=== PATIENT | female | born 1955 | race Caucasian/White ===

== ENCOUNTER 2019-06-18 01:45 | Day surgery (SDC) | payer MEDICARE, OTHER, SELFPAY ==
[2019-06-13 15:06] VITALS: BMI 31.4
[2019-06-18 10:14] VITALS: BP 197/58; PULSE 56; RESP 16; TEMP 36.5; O2SAT 97
--- NOTE | 2019-06-18 10:27 | P.HP_ITS ---
History of Present Illness History of Present Illness Consent: Risks, benefits, and alternatives have been discussed and questions answered. Patient agrees to proceed with procedure. Chief complaint: Change In Bowel Habits Narrative: Jenn Salazar is a 64 year old W female referred for colonoscopy secondary to change in bowel pattern. Patient states that since April of 2019 she has had 3-4 liquid stools per day no blood. No abdominal pain. No fever chills or sweats. No recent travel. Was at this time her was diagnosed with pancreatic cancer. She thinks it may be stress relief. He did not be in the past last one was in 2011. She has had no history of polyps no family history of colon cancer. She has a sister who she thinks has ulcerative colitis. Another sister with diverticulitis. [facility] Past Medical History Medical History (Updated 06/18/19 @ 10:30 by Twan Sullivan MD) Arthritis HX: benign breast biopsy Hyperlipidemia Hypertension TINO (obstructive sleep apnea) Surgical History Surgical History (Updated 06/18/19 @ 10:30 by Twan Sullivan MD) History of appendectomy History of bilateral tubal ligation History of History of cholecystectomy Social History Social History (Updated 05/14/19 @ 12:44 by Rocco Barriga PA-C) Smoking status: Never smoker Meds Home Medications and Allergies Home Medications Medication Instructions Recorded Confirmed Type atorvastatin 10 mg PO DAILY 06/13/19 06/18/19 History conj estrogens-bazedoxifene 1 tablet PO DAILY 06/13/19 06/18/19 History [Duavee] dicyclomine 10 mg PO TID PRN 06/13/19 06/18/19 History fluoxetine 40 mg PO DAILY 06/13/19 06/18/19 History hydrochlorothiazide 12.5 mg PO DAILY 06/13/19 06/18/19 History lisinopril 10 mg PO DAILY 06/13/19 06/18/19 History metoprolol succinate 50 mg PO DAILY 06/13/19 06/18/19 History montelukast 10 mg PO DAILY 06/13/19 06/18/19 History pregabalin [Lyrica] 200 mg PO BID 06/13/19 06/18/19 History ropinirole [Requip XL] 2 mg PO BID 01/22/20 01/27/20 History Allergies Allergy/AdvReac Type Severity Reaction Status Date / Time celecoxib AdvReac Unknown HEARTBURN, Verified 06/18/19 10:12 GI UPSET naproxen AdvReac Unknown HEARTBURN, Verified 06/18/19 10:12 GI UPSET Vital Signs Vital Signs - 24 hr 06/18/19 10:14 Temperature 36.5 C Pulse Rate 56 L Respiratory Rate 16 Blood Pressure 197/58 H Pulse Oximetry 97 Exam Const: Orientation/consciousness: patient oriented x3 Resp: Auscultation: clear to auscultation bilaterally Cardio: Rate: regular rate Rhythm: regular rhythm Heart sounds: no murmurs GI: GI Palp: Yes Soft to palpation, No Tenderness to palpation present (GI), Yes No hepatosplenomegaly present and No Palpable mass present Auscultation: normal bowel sounds Neuro: General: patient oriented x3 and no focal motor deficits Extrem: General: no pedal edema Assessment and Plan Additional Plan colonoscopy for evaluation change in bowel pattern
--- NOTE | 2019-06-18 10:27 | WPDANESEPPF ---
Anes - Initial Pre Proc Eval Procedure: Operation Date: 06/18/19 11:30 Proposed Procedures p Colonoscopy - Twan Sullivan MD Date/Time: 06/18/19 10:27 Surgeon: Twan Sullivan MD Pre Op Diagnosis: Change In Bowel Habits Patient Data Age: 64 Gender: F Height: 5 ft 7 in Weight: 89.3 kg Last Vital Signs Temp 97.7 F 06/18/19 10:14 Pulse 56 L 06/18/19 10:14 Resp 16 06/18/19 10:14 BP 197/58 H 06/18/19 10:14 Pulse Ox 97 06/18/19 10:14 Allergies Allergy/AdvReac Type Severity Reaction Status Date / Time celecoxib AdvReac Unknown HEARTBURN, Verified 06/18/19 10:12 GI UPSET naproxen AdvReac Unknown HEARTBURN, Verified 06/18/19 10:12 GI UPSET Home Medications Medication Instructions Recorded Confirmed Type atorvastatin 10 mg PO DAILY 06/13/19 06/18/19 History conj estrogens-bazedoxifene 1 tablet PO DAILY 06/13/19 06/18/19 History [Duavee] dicyclomine 10 mg PO TID PRN 06/13/19 06/18/19 History fluoxetine 40 mg PO DAILY 06/13/19 06/18/19 History hydrochlorothiazide 12.5 mg PO DAILY 06/13/19 06/18/19 History lisinopril 10 mg PO DAILY 06/13/19 06/18/19 History metoprolol succinate 50 mg PO DAILY 06/13/19 06/18/19 History montelukast 10 mg PO DAILY 06/13/19 06/18/19 History pregabalin [Lyrica] 200 mg PO BID 06/13/19 06/18/19 History ropinirole [Requip XL] 2 mg PO BID 06/13/19 06/18/19 History Patient hx anesthesia problems: none Family hx anesthesia problems: none PMFSH Past Medical History Medical History (Updated 06/18/19 @ 10:27 by Sarthak Thayer MD) Arthritis Hyperlipidemia Hypertension TINO (obstructive sleep apnea) Social History Social History (Updated 05/14/19 @ 12:44 by Rocco Barriga PA-C) Smoking status: Never smoker Anes - Eval Final PreProcedure Day of Procedure 06/18/19 10:27 Patient weight: normal Heart: regular rate and rhythm Lungs: clear to auscultation Airway: Mallampati scale class II Neurological: alert and oriented Last oral intake: >/= 8 hours ASA classification: III Emergent: no Anesthetic plan: proceed Anesthesia type and monitoring: general GIVS and standard monitoring Informed Consent: The patient's anesthetic plan and its attendant risks and benefits were discussed with the patient/family/POA. Questions were solicited and answers provided to the satisfaction of the patient/family/POA.
[2019-06-18] MEDS: LACTATED RINGERS 1,000 ML 150 ML IV CONT (10:34)
[2019-06-18 12:01] VITALS: BP 114/58; PULSE 48; RESP 21; O2SAT 97
[2019-06-18 12:11] VITALS: BP 146/62; PULSE 49; RESP 20; O2SAT 99
[2019-06-18 12:22] VITALS: BP 159/74; PULSE 50; RESP 20; O2SAT 99
== END 2019-06-18 12:40 | disposition home or self-care (01) ==
PROVIDERS: PCP Internal Medicine; Visit Provider Internal Medicine Gastroenterology
PROC: 0DJD8ZZ Inspection of Lower Intestinal Tract, Via Natural or Artificial Opening Endoscopic (ICD-10-PCS; CPT 45378; principal; 2019-06-18 11:30)
DX: K52.9 Noninfective gastroenteritis and colitis, unspecified (principal); I10 Essential (primary) hypertension; E78.5 Hyperlipidemia, unspecified; G47.33 Obstructive sleep apnea (adult) (pediatric); M19.90 Unspecified osteoarthritis, unspecified site
CPT/HCPCS: 45380; 88305; J2704; J7120

== ENCOUNTER 2020-05-10 11:12 | Emergency (ER) | payer MEDICARE, OTHER, SELFPAY ==
--- NOTE | ~2020-05-10 | XR_ITS ---
EXAMINATION: XR chest 2V DATE: 05/10/2020 11:35 INDICATION: Cough. Dyspnea. TECHNIQUE: Frontal and lateral views of the chest were obtained. COMPARISON: Chest single view 06/14/2008 FINDINGS: Calcified right lung nodules and calcified right hilar lymph nodes are consistent with old granulomatous disease. No pleural effusion or pneumothorax. Cardiomegaly is noted. Median sternotomy wires and mediastinal surgical clips are seen, likely from prior coronary artery bypass grafting. IMPRESSION: 1. Cardiomegaly. Reviewed, dictated and finalized at location A. OPERATIONS MANAGER IMPRESSION: 1. Cardiomegaly.
--- NOTE | 2020-05-10 11:16 | ED.SOB ---
HPI - SOB/Dyspnea General Chief Complaint: Shortness of Breath/Dyspnea Stated Complaint: sob Time Seen by Provider: 05/10/20 11:23 Source: patient and RN notes reviewed Mode of arrival: ambulatory Limitations: no limitations History of Present Illness HPI Narrative: 65-year-old female with history of mitral valve flutter presents with concern for 5-day history of shortness of breath. Reports shortness of breath is exacerbated with activities such as climbing stairs, walking, wearing a mask. Reports bilateral posterior rib pain, midsternal pain, reports occasional nonproductive cough. Reports nasal congestion, ear fullness, reports she just finished amoxicillin given to her by her dentist for sinus congestion. Reports diarrhea for 3 days. She denies chills, body aches, fever, sweats, vomiting, nausea MD elicited complaint: shortness of breath Related Data Home Medications Medication Instructions Recorded Confirmed Duavee 1 tablet PO DAILY 06/13/19 06/18/19 atorvastatin 10 mg PO DAILY 06/13/19 06/18/19 dicyclomine 10 mg PO TID PRN 06/13/19 06/18/19 fluoxetine 40 mg PO DAILY 06/13/19 06/18/19 hydrochlorothiazide 12.5 mg PO DAILY 06/13/19 06/18/19 lisinopril 10 mg PO DAILY 06/13/19 06/18/19 metoprolol succinate 50 mg PO DAILY 06/13/19 06/18/19 montelukast 10 mg PO DAILY 06/13/19 06/18/19 pregabalin [Lyrica] 200 mg PO BID 06/13/19 06/18/19 ropinirole [Requip XL] 2 mg PO BID 06/13/19 06/18/19 Allergies Allergy/AdvReac Type Severity Reaction Status Date / Time celecoxib AdvReac Unknown HEARTBURN, Verified 06/18/19 10:12 GI UPSET naproxen AdvReac Unknown HEARTBURN, Verified 06/18/19 10:12 GI UPSET Review of Systems Review of Systems: Narrative: CONSTITUTIONAL: Denies malaise, chills, sweats, or fever. EYES: Denies visual changes, redness, or discharge. ENT: Reports rhinorrhea, congestion, ear fullness. Denies sinus pain, otalgia and sore throat. CARDIOVASCULAR: Denies chest pain, palpitations, or edema. RESPIRATORY: Reports cough, dyspnea. GASTROINTESTINAL: Denies abdominal pain, nausea, vomiting. Reports diarrhea SKIN: Denies rash or itching. MUSCULOSKELETAL: Denies myalgia. NEUROLOGIC: Denies headache. All systems reviewed & are unremarkable except as noted in HPI and below PMFSH Past Medical History Medical History (Updated 05/10/20 @ 12:02 by Johanny Dawkins NP) Arthritis HX: benign breast biopsy Hyperlipidemia Hypertension TINO (obstructive sleep apnea) Surgical History Surgical History (Updated 06/18/19 @ 10:30 by Twan Sullivan MD) History of appendectomy History of bilateral tubal ligation History of History of cholecystectomy Social History Social History (Updated 05/14/19 @ 12:44 by Rocco Barriga PA-C) Smoking status: Never smoker Comments At time of signature, agree with nursing past medical, surgical, social and family history. There is no relevant family history pertinent to the presenting complaint Exam Narrative: Exam Narrative: GENERAL: Well-appearing, well-nourished, and in no acute distress. HEAD: Normocephalic EYES: PERRLA, conjunctivae clear ENT: Nares clear, turbinates erythematous, clear discharge. Mucous membranes moist. TM pearly hager with dull light reflex bilaterally; no tragal tenderness. Oropharynx not erythematous without lesions. Tonsils not enlarged and without exudate, no drooling, no hoarseness, no trismus, uvula midline. NECK: Supple. No lymphadenopathy CHEST: Clear to auscultation, breath sounds equal. No wheezing, rhonchi, rales, or stridor. No respiratory distress, speaks in full sentences. HEART: Regular rate and rhythm. No murmur heard. SKIN: Warm, dry, no rash. NEURO: Alert and oriented x3. PSYCH: Normal mood and affect Course Course Emergency Course: Discussed with patient limited diagnostic capability of [facility], discussed transfer to the emergency room for further evaluation. Patient chooses at this time to not seek further
[2020-05-10 11:24] VITALS: BP 171/87; PULSE 66; RESP 16; TEMP 37.1; O2SAT 97
--- NOTE | 2020-05-10 11:48 | ECG_ITS ---
Measurements Intervals [place] Rate: 57 P: 64 SC: 174 QRS: 49 QRSD: 79 T: 23 QT: 434 QTc: 425 Interpretive Statements SINUS BRADYCARDIA ATRIAL PREMATURE COMPLEX BORDERLINE ST-T WAVE ABNORMALITY- INFERIOR LEADS BORDERLINE ECG Electronically Signed On 05-10-2020 16:59:06 YACHT HAND by Rober Rosa D.O.
--- NOTE | 2020-05-10 11:59 | PC.NURSE ---
ekg and cxr complete
== END 2020-05-10 12:14 | disposition home or self-care (01) ==
PROVIDERS: Emergency Provider Nurse Practitioner; PCP Internal Medicine
DX: R06.02 Shortness of breath (principal); Z20.828 Contact with and (suspected) exposure to other viral communicable diseases; M19.90 Unspecified osteoarthritis, unspecified site; E78.5 Hyperlipidemia, unspecified; I10 Essential (primary) hypertension; G47.33 Obstructive sleep apnea (adult) (pediatric); I48.91 Unspecified atrial fibrillation; I34.1 Nonrheumatic mitral (valve) prolapse
CPT/HCPCS: 71046; 93005; 99213; G0463

== ENCOUNTER 2022-08-11 10:20 | Emergency (ER) | payer MEDICARE, OTHER, SELFPAY ==
[2022-08-11] VITALS (11 sets, daily range): BP systolic 108–147; BP diastolic 42–85; PULSE 46–60; RESP 12–20; TEMP 36.9; O2SAT 96–100
--- NOTE | ~2022-08-11 | XR_ITS ---
XR ankle LT min 3V DATE: 08/11/2022 11:55 INDICATION: Lateral ankle pain following fall TECHNIQUE: 4 views COMPARISON: None FINDINGS: No fracture or dislocation of the ankle or disruption of the ankle mortise. No periosteal r eaction or bone destruction. IMPRESSION: No fracture or dislocation of left ankle Reviewed, dictated and finalized at location B.
--- NOTE | ~2022-08-11 | CT_ITS ---
EXAMINATION: CT brain wo con DATE: 08/11/2022 11:42 INDICATION: Fall, injuries TECHNIQUE: Computed tomography (CT) of the head was performed without intravenous contrast. The mA wa s adjusted according to patient size. Iterative reconstruction technique was employed. Exam dose: 52 9.67 mGy-cm total exam DLP. COMPARISON: None FINDINGS: There is a small hyperdense subdural hematoma high over the right parietal convexity. There is a small mixed hypodense and hyperdense right frontal subdural hematoma and larger mixed isod ense and hypodense left subdural hematoma. No intracranial mass lesion or brain hematoma is evident. No midline shift is noted. No intraventricu lar hemorrhage. No subarachnoid hemorrhage is noted. Bilateral carotid siphon internal carotid artery calcifications and left vertebral artery and basilar artery calcification. Moderately prominent cerebral and cerebellar volume loss. Fracture or bone destruction of the cranial vault. The mastoid air cells and included paranasal sinuses are unremarkable. IMPRESSION: Bilateral subdural hematomas Dr. Quan telephoned the report on 08/11/2022 at 1148 hours to emergency room physician Dr. Newby. Reviewed, dictated and finalized at [facility]. Reviewed, dictated and finalized at location B. IMPRESSION: Bilateral subdural hematomas Dr. Quan telephoned the report on 08/11/2022 at 1148 hours to emergency room ryanne Newby.
--- NOTE | ~2022-08-11 | CT_ITS ---
EXAMINATION: CT cervical spine wo con DATE: 08/11/2022 11:42 INDICATION: Fall. Neck pain. TECHNIQUE: Computed tomography (CT) of the cervical spine was performed without intravenous contrast. Automated exposure control and iterative reconstruction technique were employed. Exam dose: 366.00 mGy-cm total exam DLP. COMPARISON: None FINDINGS: There is straightening of the cervical spinal which may be positional or due to muscle spas m. C1 and C2 are normally aligned and the odontoid process is intact. No fracture or dislocation or lock ed facet. There is moderately severe degenerative disc disease and uncovertebral joint spurring at C3-4, C4-5, C5-6.. IMPRESSION: Straightening of the cervical spine Cervical spondylosis No fracture or dislocation or locked facet Reviewed, dictated and finalized at Location [facility]. Reviewed, dictated and finalized at location B.
--- NOTE | ~2022-08-11 | XR_ITS ---
XR shoulder LT min 2V DATE: 08/11/2022 11:56 INDICATION: Left shoulder pain following fall. Limited range of motion. TECHNIQUE: 4 views COMPARISON: None FINDINGS: No fracture, dislocation, periosteal reaction or bone destruction or abnormal soft tissue c alcification. Mild glenohumeral osteoarthritis. IMPRESSION: No fracture or dislocation Reviewed, dictated and finalized at location B. IMPRESSION: No fracture or dislocation
--- NOTE | ~2022-08-11 | XR_ITS ---
XR forearm LT 2V DATE: 08/11/2022 11:55 INDICATION: Fall, laceration, injury of forearm TECHNIQUE: AP and lateral views COMPARISON: None FINDINGS: No fracture or dislocation, periosteal reaction or bone destruction. Normal alignment at th e elbow and wrist joints. IMPRESSION: Negative Reviewed, dictated and finalized at location B. IMPRESSION: Negative
[2022-08-11] MEDS: ACETAMINOPHEN 500 MG TABLET 1000 MG PO ×2 (11:30→20:54)
[2022-08-11] MEDS: TETANUS,DIPHTHERIA,AC PERTUSSIS ADULT (0.5 ML) BOOSTRIX IM (11:30)
[2022-08-11] MEDS: LIDOCAINE HCL 2% LOCAL INJ 20 ML VIAL 5 ML INFILTRATE (11:31)
--- NOTE | 2022-08-11 12:37 | ED.FALL ---
HPI - Fall General Chief Complaint: Fall <Chiqui Newby MD - Last Filed: 08/11/22 19:17> Stated Complaint: Fall <Chiqui Newby MD - Last Filed: 08/11/22 19:17> Time Seen by Provider: 08/11/22 11:02 <Chiqui Newby MD - Last Filed: 08/11/22 19:17> Source: patient, RN notes reviewed and old records reviewed <Chiqui Newby MD - Last Filed: 08/11/22 19:17> Mode of arrival: ambulatory <Chiqui Newby MD - Last Filed: 08/11/22 19:17> Limitations: no limitations <Chiqui Newby MD - Last Filed: 08/11/22 19:17> History of Present Illness HPI Narrative: This is a 67 year old female with history of history of afib, hyperlipidemia, hypertension who presents for evaluation after a fall. She reports she was in physical therapy when she lost her balance. This caused her to fall to the left. She is unsure if she hit her head but she takes Eliquis. She reports neck pain, left shoulder pain, left ankle pain. She also has wound to her left forearm and left pyle. She is in physical therapy for balance issues. <Chiqui Newby MD - Last Filed: 08/11/22 19:17> Related Data Home Medications: Home Medications Medication Instructions Recorded Confirmed atorvastatin 10 mg tablet 10 mg PO DAILY 06/13/19 06/18/19 conjugated estrogens 0.45 1 tablet PO DAILY 06/13/19 06/18/19 mg-bazedoxifene 20 mg tablet (Duavee) dicyclomine 10 mg capsule 10 mg PO TID PRN Diarrhea 06/13/19 06/18/19 fluoxetine 40 mg capsule 40 mg PO DAILY 06/13/19 06/18/19 hydrochlorothiazide 12.5 mg capsule 12.5 mg PO DAILY 06/13/19 06/18/19 lisinopril 10 mg tablet 10 mg PO DAILY 06/13/19 06/18/19 metoprolol succinate 50 mg 50 mg PO DAILY 06/13/19 06/18/19 tablet,extended release 24 hr montelukast 10 mg tablet 10 mg PO DAILY 06/13/19 06/18/19 pregabalin 200 mg capsule (Lyrica) 200 mg PO BID 06/13/19 06/18/19 ropinirole 2 mg tablet,extended 2 mg PO BID 06/13/19 06/18/19 release 24 hr (Requip XL) <Chiqui Newby MD - Last Filed: 08/11/22 19:17> Allergies/Adverse Reactions: Allergies Allergy/AdvReac Type Severity Reaction Status Date / Time naproxen AdvReac Unknown HEARTBURN, Verified 06/18/19 10:12 GI UPSET <Chiqui Newby MD - Last Filed: 08/11/22 19:17> PMFSH Past Medical History Medical History: Medical History (Updated 08/11/22 @ 19:15 by Chiqui Newby MD) Arthritis HX: benign breast biopsy Hyperlipidemia Hypertension TINO (obstructive sleep apnea) <Chiqui Newby MD - Last Filed: 08/11/22 19:17> Surgical History Surgical History: Surgical History (Updated 06/18/19 @ 10:30 by Twan Sullivan, ) History of appendectomy History of bilateral tubal ligation History of History of cholecystectomy <Chiqui Newby MD - Last Filed: 08/11/22 19:17> Social History Social History: Social History (Updated 05/14/19 @ 12:44 by Rocco Barriga, PA-C) Smoking status: Never smoker <Chiqui Newby MD - Last Filed: 08/11/22 19:17> Exam Narrative: GENERAL: Well-appearing, well-nourished, and in no acute distress. HEAD: Normocephalic, atraumatic EYES: PERRLA and EOMI, conjunctiva clear without discharge THROAT:Mucous membranes moist, Oropharynx normal without erythema, exudate, peritonsillar swelling or fluctuance NECK: Supple, without lymphadenopathy or mass RESPIRATORY: No respiratory distress, Airway patent, Respirations non-labored, Clear to auscultation without rales, rhonchi or wheeze HEART: Regular rate and rhythm. No murmur heard. Normal peripheral pulses. ABDOMEN: Soft, nontender, nondistended, normal active bowel sounds. No masses. No rebound or guarding, No organomegaly. EXTREMITIES: No edema, normal strength with full range of motion. NEURO: Alert and oriented x3. CN 2-12 grossly intact. No focal deficits. PSYCH: Normal mood and affect. <Chiqui Newby MD - Last Filed: 08/11/22 19:17> Skin:
--- NOTE | 2022-08-11 12:49 | ECG_ITS ---
Measurements Intervals [place] Rate: 45 P: 74 NV: 183 QRS: 37 QRSD: 95 T: 19 QT: 443 QTc: 386 Interpretive Statements SINUS BRADYCARDIA ABNORMAL ECG COMPARED TO ECG 05/10/2020 11:50:55 NO SIGNIFICANT CHANGES Electronically Signed On 08-11-2022 14:37:32 CDT by Rober Rosa D.O.
[2022-08-11 15:50] LABS: SARS-CoV-2 RNA PCR Negative
[2022-08-11 20:03] LABS: Basophils Percent Auto 0.4 % (0.2-1.2); Eosinophils Absolute Auto 0.1 K/mm3 (0-0.3); Eosinophils Percent Auto 1.1 % (0-4.4); Hematocrit 41.6 % (37.0-47.0); Hemoglobin 13.7 g/dL (12.0-15.0); Immature Granulocyte Absolute 0.03 K/mm3 (0.00-0.031); Immature Granulocyte Percent A 0.4 % (0-0.5); Lymphocytes Absolute Auto 1.33 K/mm3 (0.9-3.2); Lymphocytes Percent Auto 17.8 % (18.3-44.2); Mean Corpuscular HGB Conc 32.9 g/dl (32-36); Mean Corpuscular Hemoglobin 29.3 pg (26-34); Mean Corpuscular Volume 88.9 fl (80-100); Mean Platelet Volume 10.1 fl (7.4-10.4); Monocytes Absolute Auto 0.5 K/mm3 (0.1-0.6); Monocytes Percent Auto 6.9 % (2.6-8.5); Neutrophils Absolute Auto 5.5 K/mm3 (1.3-6.7); Neutrophils Percent Auto 73.4 % (45.5-73.1); Platelet Count Result 174 k/mm3 (150-375); Red Blood Count 4.68 M/mm3 (4.2-5.4); Red Cell Distribution Width 16.3 % (11.5-14.5); White Blood Count 7.5 K/mm3 (4.5-10.0)
[2022-08-11 20:18] LABS: INR 1.1; Partial Thromboplastin Time 32.1 SECONDS (22.3-36.8)
[2022-08-11 20:19] LABS: Alanine Aminotransferase 40 U/L (6-35); Albumin Level 4.6 g/dL (3.5-5.1); Alkaline Phosphatase 101 U/L (38-126); Anion Gap 7 mmol/L (8-16); Aspartate Amino Transferase 36 U/L (14-36); Bilirubin,Total 0.6 mg/dL (0.2-1.3); Blood Urea Nitrogen 21 mg/dL (7-17); Calcium 9.2 mg/dL (8.4-10.2); Carbon Dioxide 28 mmol/L (22-30); Chloride 105 mmol/L (98-107); Estimated CRCL calculation 82 ml/min; Estimated Glomerular Filt Rate > 60; Glucose 154 mg/dL (65-110); Potassium 3.9 mmol/L (3.4-5.0); Sodium 140 mmol/L (137-145)
--- NOTE | 2022-08-11 20:41 | PC.NURSE ---
Report given to Kamilah GUIDRY
--- NOTE | 2022-08-11 20:58 | PC.NURSE ---
Spoke with Salvador at [facility]. update given regarding clinic status. no bed currently available.
--- NOTE | 2022-08-11 22:25 | PC.NURSE ---
Report called to Chanel GUIDRY at [facility] notified for transport. pt aware of transfer
[2022-08-12 00:03] VITALS: BP 150/63; PULSE 54; RESP 25; O2SAT 98
[2022-08-12 01:56] VITALS: BP 118/77; PULSE 59; RESP 16; O2SAT 100
== END 2022-08-12 02:09 | disposition short-term general hospital (02) ==
PROVIDERS: General Practice; Emergency Provider Preventive Medicine Aerospace Medicine; PCP Internal Medicine
DX: S06.5X0A Traumatic subdural hemorrhage without loss of consciousness, initial encounter (principal); S51.812A Laceration without foreign body of left forearm, initial encounter; S80.812A Abrasion, left lower leg, initial encounter; W18.39XA Other fall on same level, initial encounter; I10 Essential (primary) hypertension; E78.5 Hyperlipidemia, unspecified; G47.33 Obstructive sleep apnea (adult) (pediatric); Z79.01 Long term (current) use of anticoagulants; Z20.822 Contact with and (suspected) exposure to COVID-19; Z23 Encounter for immunization
CPT/HCPCS: 12002; 36415; 70450; 72125; 73030; 73090; 73610; 80053; 85025; 85610; 85730; 90471; 90715; 93005; 99285; A9270; U0003; U0005

== ENCOUNTER 2022-12-30 20:13 | Emergency (ER) | payer MEDICARE, OTHER, SELFPAY ==
--- NOTE | ~2022-12-30 | CT_ITS ---
Noncontrast CT scan of the cervical spine Technique: Multiple contiguous axial [address] images of the cervical spine were obtained and rec onstructed in 2D sagittal and coronal planes on the acquisition scanner. Dose reduction technique was used on this scan by utilizing automated exposure control, adjustment of the mA and/or kV according to patient size. The dose-length product (DLP) was 482.63 mGy-cm. Clinical History: Pain COMPARISON: 08/11/2022 Findings: No fractures or dislocations. There is moderate degenerative disc narrowing at C3-C4, C4-C 5, C5-C6. There are mild uncovertebral degenerative changes at these levels. No prevertebral soft tis marshal swelling. Impression: No fracture or subluxation of the cervical spine. Reviewed, dictated and finalized at [facility]. Impression: No fracture or subluxation of the cervical spine.
--- NOTE | ~2022-12-30 | CT_ITS ---
Non-contrast Head CT History: Head injury COMPARISON: 08/11/2022 Technique: Axial non-contrast imaging of the brain was performed. Dose reduction technique was used on this scan by utilizing automated exposure control and iterative reconstruction technique. The dose -length product (DLP) was 605.33 mGy-cm. Findings: There is no evidence of intracranial hemorrhage, mass lesion, or acute infarct. Brain par enchyma appears normal. The ventricles and subarachnoid spaces are mildly dilated. The calvarium ap pears normal. The visualized paranasal sinuses and mastoid air cells are clear. Impression: No acute abnormality seen. Mild generalized atrophy. Reviewed, dictated and finalized at location . Impression: No acute abnormality seen. Mild generalized atrophy.
[2022-12-30 20:37] VITALS: BP 143/59; PULSE 54; RESP 15; TEMP 36.3; O2SAT 99
--- NOTE | 2022-12-30 22:56 | ED.HEATRA ---
HPI - Head Injury General Chief complaint: Head Injury Stated complaint: fall-hit back of head Time Seen by Provider: 12/30/22 22:26 History of Present Illness HPI Narrative: Patient is a 67-year-old female presenting with a head injury. Patient states that she stood up from a chair when she lost her balance falling backwards into the chair which then also fell causing her to fall back and strike her head against concrete. She does not think that she lost consciousness. States that she sustained a laceration to the back of her head. Denies neck pain. Reports some bilateral shoulder soreness but no pain with ROM. Denies numbness or weakness, chest pain, abdominal pain, shortness of breath. Denies further complaints. Tetanus is up-to-date. Related Data Home Medications Medication Instructions Recorded Confirmed atorvastatin 10 mg tablet 10 mg PO DAILY 06/13/19 06/18/19 conjugated estrogens 0.45 1 tablet PO DAILY 06/13/19 06/18/19 mg-bazedoxifene 20 mg tablet (Duavee) dicyclomine 10 mg capsule 10 mg PO TID PRN Diarrhea 06/13/19 06/18/19 fluoxetine 40 mg capsule 40 mg PO DAILY 06/13/19 06/18/19 hydrochlorothiazide 12.5 mg capsule 12.5 mg PO DAILY 06/13/19 06/18/19 lisinopril 10 mg tablet 10 mg PO DAILY 06/13/19 06/18/19 metoprolol succinate 50 mg 50 mg PO DAILY 06/13/19 06/18/19 tablet,extended release 24 hr montelukast 10 mg tablet 10 mg PO DAILY 06/13/19 06/18/19 pregabalin 200 mg capsule (Lyrica) 200 mg PO BID 06/13/19 06/18/19 ropinirole 2 mg tablet,extended 2 mg PO BID 06/13/19 06/18/19 release 24 hr (Requip XL) Allergies Allergy/AdvReac Type Severity Reaction Status Date / Time naproxen AdvReac Unknown HEARTBURN, Verified 12/30/22 20:13 GI UPSET Review of Systems Review of Systems: All systems reviewed & are unremarkable except as noted in HPI and below PMFSH Past Medical History Medical History Arthritis HX: benign breast biopsy Hyperlipidemia Hypertension TINO (obstructive sleep apnea) Surgical History Surgical History History of appendectomy History of bilateral tubal ligation History of History of cholecystectomy Social History Social History Smoking status: Never smoker Exam Narrative: GENERAL: Well-appearing, well-nourished, and in no acute distress. Pleasant and cooperative HEAD: Normocephalic, 2.5 centimeter laceration posterior scalp in occiput region EYES: PERRLA and EOMI. ENT: Nares clear, no rhinorrhea or epistaxis. Mucous membranes moist. NECK: Supple. CHEST: No respiratory distress. HEART: Regular rate and rhythm ABDOMEN: Soft, nondistended EXTREMITIES: Normal range of motion. No edema. SKIN: Warm, dry, no rash. NEURO: No focal deficits. Alert and oriented x3. PSYCH: Normal mood and affect. Course Vital Signs Vital signs: Vital Signs Temperature 97.4 F L 12/30/22 20:37 Pulse Rate 54 L 12/30/22 20:37 Respiratory Rate 15 12/30/22 20:37 Blood Pressure 143/59 H 12/30/22 20:37 Pulse Oximetry 99 12/30/22 20:37 Oxygen Delivery Room Air 12/30/22 20:37 Temperature 97.4 F L 12/30/22 20:37 Pulse Rate 62 12/31/22 01:10 Respiratory Rate 15 12/31/22 01:10 Blood Pressure 144/62 H 12/31/22 01:10 Pulse Oximetry 100 12/31/22 01:10 Oxygen Delivery Room Air 12/30/22 20:37 Procedures Laceration Laceration 1: Date: 12/31/22 Time: 00:53 Site: scalp Size (cm): 2.5 Description: linear Depth: simple, single layer ====== Skin Level ====== Skin layer closed with: miguelina (4) ====== Subcutaneous Layer ====== ====== Muscle Layer ====== ====== Tendon Layer ====== MDM - Head Injury MDM Narrative Medical decision making narrative: Patient is a 67-year-old female presenting with
[2022-12-31 01:10] VITALS: BP 144/62; PULSE 62; RESP 15; O2SAT 100
== END 2022-12-31 01:11 | disposition home or self-care (01) ==
PROVIDERS: Emergency Provider Emergency Medicine; PCP Internal Medicine
DX: S01.01XA Laceration without foreign body of scalp, initial encounter (principal); E78.5 Hyperlipidemia, unspecified; I10 Essential (primary) hypertension; G47.33 Obstructive sleep apnea (adult) (pediatric); M19.90 Unspecified osteoarthritis, unspecified site; Z90.49 Acquired absence of other specified parts of digestive tract; W01.190A Fall on same level from slipping, tripping and stumbling with subsequent striking against furniture, initial encounter
CPT/HCPCS: 12001; 70450; 72125; 99284

== ENCOUNTER 2024-10-23 14:02 | Outpatient (CLI) | payer MEDICARE, OTHER, SELFPAY ==
--- NOTE | ~2024-10-23 | DEXA_ITS ---
Bone Density Report Name: GAGAN RAMOS Age: 69 Sex: Female Ethnicity: White Date of : 1955 Indication: postmenopausal; screening for osteoporosis; prior fracture; Referring Provider: [facility]cy, Smith Mustafa Study: Bone densitometry was performed. Exam Date: October 23, 2024 Accession number: [id number] Bone Density: Region BMD T-score Z-score Classification AP Spine(L1-L4) 1.223 1.6 3.7 Normal Femoral Neck (Left) 0.964 1.0 2.9 Normal Total Hip (Left) 1.180 2.0 3.5 Normal Femoral Neck (Right) 0.922 0.7 2.5 Normal Total Hip (Right) 1.153 1.7 3.3 Normal Total Hip Mean 1.167 1.9 3.4 Normal World Health Organization criteria for BMD impression classify patients as: Normal (T-score at or above -1.0), Osteopenia (T-score between -1.0 and -2.5), or Osteoporosis (T-score at or below -2.5). 10-year Fracture Risk: FRAX not reported because: All T-scores for Spine Total, Hip Total, Femoral Neck at or above -1.0 Clinical Information Provided by Patient: Has had a low trauma fracture Has used the following medications: Vitamin D, Calcium Patient maximum height was 67 Menopause Age: 57 No regular weight bearing exercise Drinks caffeinated beverages Onset of menses at age 11 Number of children 3 Impression: The patient has normal bone mass. The patient has risk factors, including: previous fracture. Discussion: LOW RISK OF FRACTURE; BONE DENSITY IS WELL ABOVE THE MINIMUM DESIRABLE LEVEL AND ABOVE AVERAGE FOR AGE AND SEX AT ALL SKELETAL SITES TESTED. This person's bone density is above expected limits for age and sex. This is rarely clinically significant, but should be pursued if there are significant musculoskeletal complaints. The patient should follow a healthful lifestyle (good nutrition with adequate calcium and vitamin D, and appropriate weight-bearing exercise). Follow-Up: Consider repeating this study in 5 years or sooner if there is some new clinical indication. Reported by: FLORES on 10/23/2024 2:31:00 PM. Reviewed, dictated and finalized at location A.
== END 2024-10-23 14:03 | disposition home or self-care (01) ==
LOC: MICIMG 14:05
PROVIDERS: PCP Internal Medicine; Visit Provider Internal Medicine
DX: Z78.0 Asymptomatic menopausal state (principal)
CPT/HCPCS: 77080

== ENCOUNTER 2024-12-25 10:06 | Outpatient (CLI) | payer MEDICARE, OTHER, SELFPAY ==
--- NOTE | 2024-12-25 10:46 | ECG_ITS ---
Test Date: 2024-12-25 10:53:22 Measurements Intervals [place] Rate: 50 P: 61 NE: 175 QRS: 43 QRSD: 85 T: 16 QT: 427 QTc: 393 Interpretive Statements SINUS BRADYCARDIA WITH OCCASIONAL SUPRAVENTRICULAR PREMATURE COMPLEXES BORDERLINE ST-T WAVE ABNORMALITY- INFERIOR LEADS BORDERLINE ECG No previous ECG available for comparison Electronically Signed On 12-25-2024 11:28:27 CDT by Rober Rosa D.O.
--- OUTSIDE RECORDS SUMMARY | 2024-12-25 10:49 | XMS_ITS | Encounter Summary ---
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 Name Role Phone Unavailable Primary Care Provider Unavailabl e Encounter Details Date Type Department Care Team (Late st Contact Info) Description 09/05/2020 Lab Requisition [facility] [address] [place] [address] Felix Sidhu MD [address] [place] [address] Social History Tobacco Use Types Packs/Day Years Used Date Smoking Tobacco: Never Assessed Comments Unknown Sex and Gender Information Value Date Recorded Sex Assigned at Not on file 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[employer] Gender Identity Not on file Sexual Orientation Not on file documented as of this encounter Plan of Treatment Not on file documented as of this encounter Procedures Procedure Name Priority Date/Time Associated Diagnosis Comments DERMATOPATHOLOGY Routine 09/03/2020 12:0 0 AM CDT documented in this encounter Results * DERMATOPATHOLOGY (09/03/2020 12:00 AM CDT) Case Report Dermatopathology Report Case: [id number] Authorizing Provider: Felix Sidhu MD Collected: 09/03/2020 12:00 AM Ordering Location: [facility] Received: 09/05/2020 08:32 AM Pathologist: Gauri Titus MD Specimen: Skin, midline upper back 1 1:45 PM CDT DERMATOPATHOLOGY LABORATORY Final Diagnosis Specimen A. SKIN, midline upper back: HEALING SKIN CHANGES (L90.5) PRESENT AT MARGIN 1 1:45 PM CDT DERMATOPATHOLOGY LABORATORY at 1345 CDT Clinical History Bx proven BCC, superficial multifocal. Previous Bx: [id number]. 1 1:45 PM CDT DERMATOPATHOLOGY LABORATORY Gross Description Specimen A: Received is one formalin filled container labeled with the patient's name and designated midline upper back. The specimen consists of a curettage and desiccation biopsy measuring [id number], the margin is inked green. Jar 0. 1 1:45 PM CDT DERMATOPATHOLOGY LABORATORY Microscopic Description Specimen A. SKIN, midline upper back: There is epidermal hyperplasia beneath which there are vascular proliferation, fibroblasts, and an edematous stroma. This lesion is present at the margin of the specimen. 1 1:45 PM CDT DERMATOPATHOLOGY LABORATORY Disclaimer An external and internal positive and negative controls are appropriate for the histochemical, immunohistochemical and immunofluorescence stain(s) in this case (if any), except where stated explicitly. The performance characteristics of the stain(s) cited in this report were developed and its performance characteristic determined by the Dermatopathology Laboratory at [facility], directed by Dr. Clau Titus. These tests need not be, and therefore are not, approved by the [place] Food and Drug Administration. The tests are used for clinical purposes. Billing Codes Specimen Charges Stain Charges 25314 1 1 1:45 PM CDT DERMATOPATHOLOGY LABORATORY Embedded Images 1 1:45 PM CDT DERMATOPATHOLOGY LABORATORY Pathology/Cytolog y TISSUE SPECIMEN FROM SKIN / Unknown 09/03/2020 09/05/2020 8:32 AM CDT Felix Sidhu MD LAB - PATHOLOGY/CYTOLOGY ORD ERABLES Final Result DERMATOPATHOLOGY LABORATORY [facility] - Department of Dermatology [address] [phone] documented in this encounter Visit Diagnoses Not on filedocumented in this encounter
--- OUTSIDE RECORDS SUMMARY | 2024-12-25 10:49 | XMS_ITS | Encounter Summary ---
Author Organization [facility] Address [address] [place] [address] Care Team Providers Care Document Reviewer Name Role Phone Unavailable Primary Care Provider Unavailabl e Encounter Details Date Type Department Care Team (Late st Contact Info) Description 08/12/2020 Lab Requisition [facility] [address] [place] [address] Felix Sidhu MD [address] [place] [address] Social History Tobacco Use Types Packs/Day Years Used Date Smoking Tobacco: Never Assessed Comments Unknown Sex and Gender Information Value Date Recorded Sex Assigned at Not on file 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 Gender Identity Not on file Sexual Orientation Not on file documented as of this encounter Plan of Treatment Not on file documented as of this encounter Procedures Procedure Name Priority Date/Time Associated Diagnosis Comments DERMATOPATHOLOGY Routine 08/11/2020 12:0 0 AM CDT documented in this encounter Results * DERMATOPATHOLOGY (08/11/2020 12:00 AM CDT) Case Report Dermatopathology Report Case: [id number] Authorizing Provider: Felix Sidhu MD Collected: 08/11/2020 12:00 AM Ordering Location: [facility] Received: 08/12/2020 12:28 PM Pathologist: Yun Hagan MD Specimen: Skin, midline upper back 12:53 PM CDT DERMATOPATHOLOGY LABORATORY Final Diagnosis Specimen A. SKIN, midline upper back: BASAL CELL CARCINOMA, SUPERFICIAL MULTIFOCAL (C44.519) 12:53 PM CDT DERMATOPATHOLOGY LABORATORY at 1253 CDT Clinical History R/O BCC, Leary's. 12:53 PM CDT DERMATOPATHOLOGY LABORATORY Gross Description Specimen A: Received is one formalin filled container labeled with the patient's name and designated midline upper back. The specimen consists of a shave biopsy measuring [id number]. Jar 0. 12:53 PM CDT DERMATOPATHOLOGY LABORATORY Microscopic Description Specimen A. SKIN, midline upper back: Attached to the undersurface of the epidermis, there are small aggregates of basaloid cells with a high nuclear to cytoplasmic ratio and peripheral palisading. 12:53 PM CDT DERMATOPATHOLOGY LABORATORY Disclaimer An external and internal positive and negative controls are appropriate for the histochemical, immunohistochemical and immunofluorescence stain(s) in this case (if any), except where stated explicitly. The performance characteristics of the stain(s) cited in this report were developed and its performance characteristic determined by the Dermatopathology Laboratory at [facility], directed by Dr. Clau Titus. These tests need not be, and therefore are not, approved by the [place] Food and Drug Administration. The tests are used for clinical purposes. Billing Codes Specimen Charges Stain Charges 70997 1 12:53 PM CDT DERMATOPATHOLOGY LABORATORY Embedded Images 12:53 PM CDT DERMATOPATHOLOGY LABORATORY Pathology/Cytolog y TISSUE SPECIMEN FROM SKIN / Unknown 08/11/2020 08/12/2020 12:28 PM CDT Felix Sidhu MD LAB - PATHOLOGY/CYTOLOGY ORD ERABLES Final Result DERMATOPATHOLOGY LABORATORY [facility] - Department of Dermatology [address] [place] [address], [facility] [phone] documented in this encounter Visit Diagnoses Not on filedocumented in this encounter
--- OUTSIDE RECORDS SUMMARY | 2024-12-25 10:49 | XMS_ITS | Referral Summary ---
Author Organization [facility] Address [address] [place] [address] Care Team Providers Care Regional Commercial Sales Manager Name Role Phone Smith Madrid MD Primary Care Provider Olga Macias MD Unavailable Davy Pena MD Unavailable Ghulam Crews MD Unavailable [phone] Naomi George MD Unavailable Smith Madrid MD Unavailable [phone] Encounters Date Type Department Care Team Description 12/13/2024 4:00 PM CDT Office Visit [facility] [address] 6[address] [place] [address] [place] [id number] Naomi George MD Hereditary and idiopathic neuropathy, unspecified (Primary Dx) 11/30/2024 Orders Only [facility] [address] [place] [address] [address] [place] [address] Maite Hawthorne RMA Family history of hemochromatosis (Primary Dx) 10/29/2024 Results Follow-Up [facility] [address] [place] [address] [address] [place] [address] Smith Madrid MD SCAN - RADIOLOGY/IMAGING 10/29/2024 Orders Only [facility] [address] [place] [address] [address] [place] [address] Smith Madrid MD 10/02/2024 Results Follow-Up [facility] [address] [place] [address] [address] [phone] Smith Madrid MD Comprehensive metabolic panel, TSH, eGFR 10/02/2024 12:20 PM CDT - 10/02/2024 11:59 PM CDT Hospital Encounter [address] [id number] Post-menopausal; Type 2 diabetes mellitus without complication, without long-term current use of insulin (HCC); Eczema, unspecified type; Essential hypertension; Mixed hyperlipidemia; Paroxysmal atrial fibrillation (HCC) Discharge Disposition: Discharge to home or self care 10/01/2024 9:15 AM CDT Office Visit [facility] [address] [place] [phone] Smith Madrid MD Type 2 diabetes mellitus without complication, without long-term current use of insulin (HCC) (Primary Dx); Post-menopausal; Eczema, unspecified type; Essential hypertension; Mixed hyperlipidemia; Paroxysmal atrial fibrillation (HCC) from Last 3 Months Allergies Active Allergy Reactions Criticality Noted Date Comments Metformin Muscle pain Medium 10/18/2022 Naproxen Chest tightness Medium 07/14/2015 Nsaids (Non-Steroidal Anti-Inflammatory Drug) Other (See comments) Low 09/12/2017 History of Brain bleed Medications amLODIPine (NORVASC) 10 mg tablet Take 1 tablet (10 mg total) by mouth every morning 020 Active icosapent ethyL (VASCEPA) 1 gram capsule Take 2 capsules (2 g total) by mouth 2 (two) times a day Active acyclovir (ZOVIRAX) 5 % ointment As needed 023 Active atorvastatin (LIPITOR) 80 mg tablet Take 1 tablet (80 mg total) by mouth daily 023 Active multivitamin tablet Take 1 tablet by mouth daily Active cholecalciferol (VITAMIN D-3) 2000 unit capsule Take 1 capsule (2,000 Units total) by mouth nightly Active folic acid (FOLVITE) 1 mg tablet Take 1 tablet (1 mg total) by mouth nightly Active melatonin 5 mg tablet Take 1 tablet (5 mg total) by mouth nightly as needed Active aspirin 81 mg chewable tabletIndicatio ns:coronary artery disease Take 1 tablet (81 mg total) by mouth daily 30 tablet 11 Active Lasix 20 mg tablet Take by mouth Active OneTouch Verio test strips strip USE TO TEST ONCE DAILY 100 strip 11 Active lancets (OneTouch Delica Plus Lancet) 30 gauge misc USE TO FENG BLOOD SUGAR ONCE DAILY 100 each 1 Active losartan (COZAAR) 50 mg tablet Take 1 tablet (50 mg total) by mouth daily Active ezetimibe (ZETIA) 10 mg tablet Take 1 tablet (10 mg total) by mouth daily 90 tablet 4 024 2024 Active spironolactone (ALDACTONE) 25 mg tablet TAKE 1 TABLET (25 MG TOTAL) BY MOUTH DAILY. 90 tablet 3 024 2024 Active rOPINIRole (REQUIP) 2 mg tabletIndicatio ns:Restless leg syndrome TAKE 1 TABLET BY MOUTH TWICE A DAY 180 tablet 3 025 Active hydrocortisone (ANUSOL-HC) 2.5 % rectal cream APPLY INTO RECTUM 4 TIMES A DAY NEEDED FOR HEMORRHOIDS/RECT AL DISCOMFORT 30 g 025 Active valACYclovir (VALTREX) 1 gram tablet Take 2 tablets (2,000 mg total) by mouth 2 (two) times a day Once for new outbreak 10 tablet Active progesterone (PROMETRIUM) 200 mg capsule Active estradioL (ESTRACE) 0.01 % (0.1 mg/gram) vaginal cream INSERT 1 APPLICATORFUL VAGINALLY ONCE DAILY FOR 7 DAYS, THEN USE 1 APPLICATORFUL TWICE WEEKLY Active triamcinolone (KENALOG) 0.1 % ointmentIndicat ions:Skin Inflammation Apply topically 2 (two) times a day 30 g 2 025 Active sertraline (ZOLOFT) 100 mg tablet TAKE 1 TABLET BY MOUTH EVERY DAY IN THE MORNING 90 tablet 3 06/09/2 025 Active pregabalin (LYRICA) 200 mg capsuleIndicati ons:Hereditary and idiopathic neuropathy, unspecified Take 1 capsule (200 mg total) by mouth 2 (two) times a day 180 capsule 1 025 2024 Active montelukast (SINGULAIR) 10 mg tablet TAKE 1 TABLET BY MOUTH EVERYDAY AT BEDTIME 90 tablet 1 025 Active montelukast (SINGULAIR) 10 mg tablet TAKE 1 TABLET BY MOUTH EVERYDAY AT BEDTIME 90 tablet 1 025 2024 Discontinued Active Problems Problem Noted Date Diagnosed Date Eczema 10/01/2024 Assessment & Plan (10/01/2024 9:46 AM CDT): Will try triamcinolone cream in addition to lotion. Hypersomnolence 11/23/2023 Presence of Amulet left atrial appendage closure device 06/07/2023 Atrial fibrillation 05/17/2023 Assessment & Plan (10/01/2024 9:46 AM CDT): Continue present Rx. Remains on aspirin. Subdural hematoma 08/12/2022 Diabetes mellitus, type 2 08/09/20222022 Assessment & Plan (10/01/2024 9:46 AM CDT): A1c slightly higher but still acceptable. Will continue present Rx. Check labs. Acute left-sided low back pain with left-sided s ciatica 06/24/2022 Assessment & Plan (06/24/2022 12:00 PM BUS CLEANER): Heat PRN MDP and tizanidine PRN (use, s/e reviewed) May do activity as tolerated, stop if pain returns BMI 34.0-34.9,adult 11/04/2021 History of CHF (congestive heart failure) 2021 Gallstone pancreatitis 10/13/2021 Overview (10/13/2021): Added automatically from request for surgery [id number] Jaundice 09/22/2021 Overview (09/28/2021): Added automatically from request for surgery [id number] Bilateral carpal tunnel syndrome 08/03/2021 Family history of coronary artery disease 2021 Arteriosclerosis of coronary artery 05/04/2021 Hyperlipidemia 09/16/2020 Overview (09/16/2020): Check based on LDL of 79 will increase atorvastatin to 20. Assessment & Plan (10/01/2024 9:46 AM CDT): Stable doing well. Labs next visit. Anxiety 06/02/2020 Hypertensive urgency 05/24/2020 Idiopathic peripheral neuropathy 05/24/2020 Severe uncontrolled hypertension 05/23/2020 Shortness of breath 05/13/2020 Acute on chronic diastolic heart failure 020 Assessment & Plan (09/16/2020 9:20 AM CDT): No signs or symptoms of CHF at this time Pleural effusion, bilateral 05/13/2020 TINO (obstructive sleep apnea) 05/13/2020 Restless leg syndrome 05/13/2020 Class 1 obesity with serious comorbidity and body mass index (BMI) of 33.0 to 33.9 in adult 05/13/2020 Atrial flutter 05/13/2020 Assessment & Plan (09/16/2020 9:20 AM CDT): Has occasional palpitations to see Dr. Macias Uterine leiomyoma 02/17/2018 Overview (08/03/2023): Leiomyoma of uterus, unspecified; Progress: Stable Added By: Viktoria Lopez Add to Current Problems: NO ProblemStatus: Resolve Uterine fibroids; Location: None Progress: Stable Added By: Viktoria Lopez Add to Current Problems: YES ProblemStatus: Resolve Postmenopausal bleeding 01/30/2018 Overview (08/03/2023): Postmenopausal vaginal bleeding; Progress: Stable Added By: Viktoria Lopez Add to Current Problems: YES ProblemStatus: Current Postmenopausal bleeding; Progress: Stable Added By: Viktoria Lopez Add to Current Problems: YES ProblemStatus: Current Actinic keratoses 10/07/2017 Dermatofibroma 10/07/2017 History of nonmelanoma skin cancer 10/07/2017 Lentigines 10/07/2017 Multiple melanocytic nevi 10/07/2017 Seborrheic keratoses 10/07/2017 Hip pain 10/04/2017 Mitral valve insufficiency 07/14/2015 Abnormal electrocardiogram (ECG) (EKG) 6 Dizziness 07/08/2015 Encounter for preventive health examination 05/23 Essential hypertension Assessment & Plan (10/01/2024 9:46 AM CDT): BP at target. Continue medication for target directed therapy Assessment & Plan (09/16/2020 9:20 AM CDT): Blood pressure currently at target. If push for exercise and diet control. Will push for weight reduction. Assessment & Plan (06/16/2020 9:14 AM BUS CLEANER): bp at target. Resolved Problems Problem Noted Date Diagnosed Date Resolved Date Chest pain 09/22/2021 06/24/2022 Acute maxillary sinusitis 06/16/2020 Assessment & Plan (06/16/2020 9:15 AM BUS CLEANER): Will give cefuroxime. Immunizations Immunization Administration Dates Next Due Influenza, Quad, Adjuvantate d, Intramuscular 03/02/2023 Influenza, Quadrivalent, Kaylen l Culture-based MDCK, Preservative Free, Antibiotic Free, Intramuscular 03/05/2018 Influenza, Quadrivalent, Hig h Dose, Preservative Free, Intrr 02/10/2022,02/15/2021,02/26/2020 Influenza, Quadrivalent, Spl it, Preservative Free, Intramuscular 02/22/2016 Influenza, Trivalent, High D ose, Split, Preservative Free, Intramuscular 02/25/2024,02/01/2013 Influenza, Trivalent, Preser vative Free, Intramuscular 02/19/2015 Influenza, Unspecified 02/21/2020 Pneumococcal Conjugate Pcv20 11/30/2022,11/29/19 23 RSV Vaccine, Pref, Recombina nt, Subunit, Adjuvanted, PF, IM (Arexvy) 05/21/2024 Tdap 08/11/2022,11/06/2014 ZOSTER Recombinant 11/12/2018 Zoster, unspecified 01/10/2019 Social History Tobacco Use Types Packs/Day Years Used Date Smoking Tobacco: Never Smokeless Tobacco: Never Alcohol Use Standard Drinks/Week Comments Yes 1 (1 standard drink = 0.6 oz pur e alcohol) previously; now rarely drinks [facility] Utilities Answer Date Recorded In the past 12 months has e [employer], gas, oil, or water [employer] threatened to shut off services in your home? No 06/07/2023 Social Connection and Isolat ion Panel [NHANES] Answer Date Recorded In a typical week, how many times do you talk on the phone with family, friends, or neighbors? More than three times a week 06/07/2023 How often do you get togethe r with friends or relatives? More than three times a week 06/07/2023 How often do you attend [facility] or roman catholic services? More than 4 times per year 06/07/2023 Do you belong to any clubs o r organizations such as judaism groups, unions, fraternal or athletic groups, or school groups? No 06/07/2023 How often do you attend meet ings of the clubs or organizations you belong to? Never 06/07/2023 Are you , , di vorced, , never , or living with a partner? 06/07/2023 AUDIT-C Answer Date Recorded Q1: How often do you have a drink containing alc ohol? Monthly or less 05/31/2023 Q2: How many drinks containi ng alcohol do you have on a typical day when you are drinking? 1 or 2 05/31/2023 Q3: How often do you have si x or more drinks on one occasion? Never 05/31/2023 Overall Financial Resource Strain (CARDIA) Answe r Date Recorded How hard is it for you to pa y for the very basics like food, housing, medical care, and heating? Not hard at all 06/07/2023 Hunger Vital Sign Answer Date Recorded Within the past 12 months, y ou worried that your food would run out before you got the money to buy more. Never true 06/07/19 24 Within the past 12 months, t he food you bought just didn't last and you didn't have money to get more. Never true 06/07/2023 PRAPARE - Transportation Answer Date Re corded In the past 12 months, has l ack of transportation kept you from medical appointments or from getting medications? No 05/23 In the past 12 months, has l ack of transportation kept you from meetings, work, or from getting things needed for daily living? No 06/07/2023 Housing Stability Vital Sign Answer Aditya e Recorded In the last 12 months, was t here a time when you were not able to pay the mortgage or rent on time? No 06/07/2023 In the last 12 months, how many places have you lived? 1 06/07/2023 In the last 12 months, was t here a time when you did not have a steady place to sleep or slept in a skilled nursing (including now)? No 06/07/2023 Personal Safety Answer Date Recorded Have you ever been in or are you currently in a harmful physical or emotional relationship or is someone making you feel afraid or unsafe? Denies 06/07/2023 Comments No Sex and Gender Information Value Date Recorded Sex Assigned at Not on file Legal Sex Female 2:02 AM BUS CLEANER Gender Identity Female 03/06/2020 2:31 PM CDT Sexual Orientation Straight 03/06/2020 2: 31 PM CDT Last Filed Vital Signs Vital Sign Reading Time Taken Comments Blood Pressure 143/66 12/13/2024 3:43 PM CDT Pulse 65 10/01/2024 9:26 AM CDT Temperature 36.6 C (97.8 F) 06/08/2023 7:00 AM BUS CLEANER Respiratory Rate 18 06/08/2023 7:00 AM BUS CLEANER Oxygen Saturation 97% 10/19/2023 8:57 AM CDT Inhaled Oxygen Concentration - - Weight 102.4 kg (225 lb 12.8 oz) 12/13/2024 3:43 PM CDT Height 170.2 cm (5' 7) 12/13/2024 3:43 PM CDT Body Mass Index 35.37 12/13/2024 3:43 PM CDT Plan of Treatment Not on file Medical Devices Implanted Type Area Bowl Topper Device Identifier Shelf Expiration Date Model / Serial / Lot [employer] Percutaneous Transcatheter Amplatzer Amulet 25mm [id number] - [id number] Implanted:Qty: 1 on 06/07/2023 by Ghulam Crews MD at [facility] Left Atrial Appendage Occluder Left: Atrial Appendage [employer] 05/22/2027 [id number] / / [id number] Advanix Naviflex 10fr 7cm Preload Radiopaque Rapid Exchange [id number] - [id number] Implanted:Qty: 1 on 09/28/2021 by Davy Pena MD at [facility] [employer] [place] 07/20/2023 [id number] / / [id number] [employer] Angio-Seal Vip 6fr Closere Device [id number] - [id number] Implanted:Qty: 1 on 08/12/2022 at [facility] [employer] 02/19/2023 [id number] / / [id number] [employer] Device Clsr Perclose Prostyle Sut-Mediatd Closure-Repair Sys [id number] - [id number] Implanted:Qty: 1 on 06/07/2023 by Ghulam Crews MD at [facility] N/A: Femoral Vein [employer] 03/22/2025 [id number] / / [id number] Procedures Procedure Name Priority Date/Time Associated Diagnosis Comments SCAN - RADIOLOGY/IMAGING 10/29/2024 7:55 AM CDT EGFR Routine 10/02/2024 12:20 PM CDT Post-menopausal Type 2 diabetes mellitus without complication, without long-term current use of insulin (HCC) Eczema, unspecified type Essential hypertension Mixed hyperlipidemia Paroxysmal atrial fibrillation (HCC) TSH Routine 10/02/2024 12:20 PM CDT Post-menopausal Type 2 diabetes mellitus without complication, without long-term current use of insulin (HCC) Eczema, unspecified type Essential hypertension Mixed hyperlipidemia Paroxysmal atrial fibrillation (HCC) COMPREHENSIVE METABOLIC PANEL Routine 10/02/2024 12:20 PM CDT Post-menopausal Type 2 diabetes mellitus without complication, without long-term current use of insulin (HCC) Eczema, unspecified type Essential hypertension Mixed hyperlipidemia Paroxysmal atrial fibrillation (HCC) POCT HEMOGLOBIN A1C Routine 10/01/2024 9 :38 AM CDT Type 2 diabetes mellitus without complication, without long-term current use of insulin (HCC) POCT LIPID PANEL Routine 04/03/2024 9:46 AM BUS CLEANER Mixed hyperlipidemia ALBUMIN CREATININE RATIO, URINE Routine 01/27/2023 10:27 AM CDT Type 2 diabetes mellitus without complication, without long-term current use of insulin (HCC) Essential hypertension Mixed hyperlipidemia History of CHF (congestive heart failure) Subdural hematoma (HCC) from Last 3 Months or Most Recently Relevant to Health Maintenance Results * SCAN - RADIOLOGY/IMAGING (10/29/2024 7:55 AM CDT) Anatomical Region Laterality Modality Other Smith Madrid MD Final Result * eGFR (10/02/2024 12:20 PM CDT) eGFR 64 >=60 mL/min/1. 73 m2 Comment: Interpretive Data Reference Interval Normal >/= 90 mL/min/1.73m2 Mildly decreased* 60 - 89 mL/min/1.73m2 Mildly to moderately decreased 45 - 59 mL/min/1.73m2 Moderately to severely decreased 30 - 44 mL/min/1.73m2 Severely decreased 15 - 29 mL/min/1.73m2 Kidney Failure < 15 mL/min/1.73m2 *Relative to young adult level Estimated glomerular filtration rate is determined by the 2020 CKD-EPI equation recommended by the National Kidney Foundation (A Unifying Approach to GFR Estimation: Recommendations of the NKF-ASK Task Force on Reassessing the Inclusion of Race in Diagnosing Kidney Disease, JASN 202). The CKD-EPI equation should not be used for patients with unstable renal function and has not been validated in children and those over 70. Current interpretive data was last reviewed 2021. Blood 10/02/2024 12:2 0 PM CDT 10/02/2024 2:04 PM CDT us Smith L. Konzen MD LAB BLOOD ORDERABLES Final Re sult Performing Organization Address City/[facility]/ZIP Co de Phone Number [facility] Department [place] [address] * TSH (10/02/2024 12:20 PM CDT) Pathologist [facility] Thyroid Stimulating Hormone 0.99 0.30 - 4.20 mcIUnit/mL Blood 10/02/2024 12:2 0 PM CDT 10/02/2024 1:49 PM CDT Smith Madrid MD LAB BLOOD ORDERABLES Final Re sult Performing Organization Address [facility] Co de Phone Number [facility] Department [place] [address] * Comprehensive metabolic panel (10/02/2024 12:20 PM CDT) [facility] Sodium 144 135 - 145 mmol/L Potassium, pl 4.5 3.3 - 4.9 mmol/L [facility] Chloride 110 97 - 110 mmol/L [facility] CO2 26 22 - 32 mmol/L [facility] Anion gap 8 2 - 15 mmol/L [facility] BUN 22 6 - 25 mg/dL [facility] Creatinine 0.95 0.60 - 1.10 mg/dL [facility] Glucose 99 70 - 199 mg/dL [facility] Comment: Interpretive Data Fasting glucose >/= 126 mg/dl is diagnostic for diabetes. Fasting is defined as no caloric intake for at least 8 hours. Fasting glucose between 100 mg/dl to 125 mg/dl is diagnostic of prediabetes. In a patient with classic symptoms of hyperglycemia or hyperglycemic crisis, a random glucose >/= 200 mg/dl is diagnostic for diabetes. In the absence of unequivocal hyperglycemia, results should be confirmed by repeat testing. The classification and Diagnosis of Diabetes Diabetes Care 202; 46: S19-S40. Current interpretive data was last revised 2022. Calcium 9.5 8.5 - 10.3 mg/dL [facility] Bilirubin, total 0.4 0.1 - 1.2 mg/dL [facility] Protein, pl 6.6 6.5 - 8.5 g/dL [facility] Albumin 4.6 3.5 - 5.0 g/dL [facility] Alk phos 110 40 - 130 Units/L [facility] ALT 21 7 - 45 Units/L [facility] AST 21 10 - 45 Units/L [facility] Blood 10/02/2024 12:2 0 PM CDT 10/02/2024 1:49 PM CDT us Smith Madrid MD LAB BLOOD ORDERABLES Final Re sult [facility] Department [place] [address] * (ABNORMAL) POCT hemoglobin A1c (10/01/2024 9:38 AM CDT) Hemoglobin A1C, POC 5.8(A) 4.0 - 5.6 % Capillary blood 10/01/2024 9 :38 AM CDT us Smith Madrid MD POINT OF CARE TEST ORDERABLES Final Result * POCT lipid panel (04/03/2024 9:46 AM BUS CLEANER) Cholesterol, POC 134 mg/dL HDL, POC 33 mg/dL Triglycerides, POC 115 mg/dL LDL Cholesterol POC 78 mg/dL Chol/HDL Ratio, POC 4.1 Non-HDL Cholesterol, POC 101 mg/dL Cholesterol Total, POC 134 mg/dL Capillary blood 04/03/2024 9 :46 AM BUS CLEANER us Smith Madrid MD POINT OF CARE TEST ORDERABLES Final Result * Albumin Creatinine Ratio, Urine (01/27/2023 10:27 AM CDT) Creatinine ur 76.7 Not Estab. mg/dL [facility] - 01 Microalbumin, ur 11.8 Not Estab. ug/mL [facility] - 01 Microalbumin/cre at ratio 15 0 - 29 mg/g creat [facility] - 01 Comment: Normal: 0 - 29 Moderately increased: 30 - 300 Severely increased: >300 Urine 01/27/2023 10:2 7 AM CDT 01/27/2023 Narrative [facility] - 01/28/2023 10:11 AM CDT Performed at: 01 - [facility] [address] [id number] Home Demonstrator: Deyvi Solis PhD, Phone: [phone] us Smith Madrid MD LAB URINE ORDERABLES Final Re sult [facility] - 01 from Last 3 Months or Most Recently Relevant to Health Maintenance Insurance MEDICARE [employer] MEDICARE [facility] MEDICARE [employer] MEDICARE Advance Directives For more information, please contact: [phone] Documents on File Type Date Recorded Patient Warehouse Processor Expl anation ADVANCE DIRECTIVE 08/27/2021 7:12 AM Power of Intelligence Agent-Medical ADVANCE DIRECTIVE 03/08/2018 12:00 AM POW ER OF COUNCILLOR [employer]/MEDICAL * Full Code (Latest Code Status on File) Date Activated Date Inactivated Comments 08/12/2022 1:27 PM 08/13/2022 3:26 PM * Full Code Date Activated Date Inactivated Comments 09/28/2021 2:12 PM 09/29/2021 9:59 PM * Full Code Date Activated Date Inactivated Comments 09/23/2021 12:54 AM 09/28/2021 2:12 PM * Full Code Date Activated Date Inactivated Comments 05/23/2020 11:16 PM 05/25/2020 9:57 PM * Full Code Date Activated Date Inactivated Comments 05/23/2020 10:18 PM 05/23/2020 11:16 PM Care Teams Regional Commercial Sales Manager Relationship Specialty Start Date End Date Smith Madrid MD PCP - General 08/18/16 [place] [id number] [address] Consulting Physician Cardiology 05/14/20 [place] [id number] [address] Consulting Physician Gastroenterology 09/29/21 [place] [id number] [address] Consulting Physician Interventional Cardiology 09/30/21 Naomi George MD [address] [place] [address] Consulting Physician Neurology 11/01/21 Smith Madrid MD Referring Physician Internal Medicine 11/04/21
--- OUTSIDE RECORDS SUMMARY | 2024-12-25 10:49 | XMS_ITS | Clinical Summary ---
Author Organization [facility] Address [address] [place] [address] Care Team Providers Care Data Compiler Name Role Phone Unavailable Primary Care Provider Unavailabl e Source Comments [facility],non-owned Affiliates and Associated Physician Practices is amultiple site organization consisting of ambulatory clinics and hospital sitesin [place], [place], [place] and [place]. This disclosure is being madepursuant to the Care Everywhere program and may not contain all information available regarding this patient. Last updated 18.[facility] [employer] Social History Tobacco Use Types Packs/Day Years Used Date Smoking Tobacco: Never Assessed Comments Unknown Sex and Gender Information Value Date Recorded Sex Assigned at Not on file Legal Sex Female 6:52 PM FLOORING INSTALLER Gender Identity Not on file Sexual Orientation Not on file Plan of Treatment Health Maintenance Due Date Last Done Comments BONE DENSITY TESTING 1955 COLOGUARD (AGES 45-75) - COL ON CA SCREENING 1954 COLON MONITORING 1954 COLONOSCOPY - COLON CA SCREENING 1954 CT COLONOGRAPHY - COLON CA SCREENING 1954 Colorectal Cancer Screening 1954 FIT - COLON CA SCREENING 1954 FLEX SIG - COLON CA SCREENING 1954 LIPID TESTING 1954 MAMMOGRAM 1954 HEPATITIS C SCREENING 03/04/1972 DTAP/TDAP/TD VACCINES (1 - Tdap) 1973 PNEUMOCOCCAL VACCINE 50+ (1 of 1 - PCV) 2004 ZOSTER VACCINE (1 of 2) 2004 COVID-19 VACCINE ( - 2023-2 5 season) 2024 DEPRESSION SCREENING 05/23/2024 INFLUENZA VACCINE (#1) 2025 Respiratory Syncytial Virus (RSV) Vaccine Pt: or over 60 yrs (1 - 1-dose 75+ series) 2029 HEPATITIS B VACCINE Aged Out No longe r eligible based on patient's age to complete this topic HIB VACCINE Aged Out No longer eligi ble based on patient's age to complete this topic HPV VACCINE Aged Out No longer eligi ble based on patient's age to complete this topic MENINGOCOCCAL (Group B) VACC INE SHARED DECISION-MAKING Aged Out No longer eligibl e based on patient's age to complete this topic MENINGOCOCCAL GROUPS A/C/Y/W VACCINE Aged Out No longer eligible b ased on patient's age to complete this topic Insurance MEDICARE [employer]
--- OUTSIDE RECORDS SUMMARY | 2024-12-25 10:49 | XMS_ITS | Clinical Summary ---
Author Organization [facility] Address [address] [place] [address] Care Team Providers Care Veterinary Bacteriologist Name Role Phone Smith Madrid MD Primary Care Provider [phone] Olga Macias MD Unavailable Davy Pena MD Unavailable Ghulam Crews MD Unavailable [phone] Naomi George MD Unavailable Smith Madrid MD Unavailable [phone] Allergies Active Allergy Reactions Criticality Noted Date [...] DAY IN THE MORNING 90 tablet 3 025 Active pregabalin (LYRICA) 200 mg capsuleIndicati [...] 06/24/2022 Assessment & Plan (06/24/2022 12:00 PM TRUCKER HAND): Heat PRN MDP and tizanidine PRN (use, s/e reviewed) May do activity as tolerated, stop if pain returns BMI 34.0-34.9,adult 11/04/2021 History of CHF (congestive heart failure) 2021 Gallstone pancreatitis 10/13/2021 Overview (10/13/2021): Added automatically from request for surgery [id number] Jaundice 09/22/2021 Overview (09/28/2021): Added automatically from request for surgery [id number] Bilateral carpal tunnel syndrome 08/03/2021 Family history [...] Current Postmenopausal bleeding; Progress: Stable Added By: Leravatanakul, Crystal Add to Current Problems: YES ProblemStatus: Current [...] reduction. Assessment & Plan (06/16/2020 9:14 AM TRUCKER HAND): bp at target. Resolved Problems Problem Noted Date Diagnosed Date Resolved Date Chest pain 09/22/2021 06/24/2022 Acute maxillary sinusitis 06/16/2020 Assessment & Plan (06/16/2020 9:15 AM TRUCKER HAND): Will give cefuroxime. Encounters Date Type Department Care Team Description 12/13/2024 4:00 PM CDT Office Visit [facility] [address] [place] [address] [place] [id number] Naomi George MD Hereditary and idiopathic neuropathy, unspecified (Primary Dx) 11/30/2024 Orders Only [facility] [address] [place] [address] [address] [place] [address] Maite Hawthorne RMA Family history of hemochromatosis (Primary Dx) 10/29/2024 Results Follow-Up [facility] [address] [place] [address] [address] [place] [address] Smith Madrid MD SCAN - RADIOLOGY/IMAGING 10/29/2024 Orders Only [facility] [address] [place] [address] [address] [place] [phone] Smith Madrid MD 10/02/2024 12:20 PM CDT - 10/02/2024 11:59 PM CDT Hospital Encounter [facility] [address] [place] [address] Post-menopausal; Type 2 diabetes mellitus without complication, without long-term current use of insulin (HCC); Eczema, unspecified type; Essential hypertension; Mixed hyperlipidemia; Paroxysmal atrial fibrillation (HCC) Discharge Disposition: Discharge to home or self care 10/02/2024 Results Follow-Up [facility] [address] [place] [address] [address] [place] [id number] Smith Madrid MD Comprehensive metabolic panel, TSH, eGFR 10/01/2024 9:15 AM CDT Office Visit [facility] [address] [place] [address] [address] [place] [phone] Smith Madrid MD Type 2 diabetes mellitus without complication, without long-term current use of insulin (HCC) (Primary Dx); Post-menopausal; Eczema, unspecified type; Essential hypertension; Mixed hyperlipidemia; Paroxysmal atrial fibrillation (HCC) from Last 3 Months Immunizations Immunization Administration Dates Next Due Influenza, [...] 08/11/2022,11/06/2014 ZOSTER Recombinant 11/12/2018 Zoster, unspecified 01/10/2019 Surgical History Surgery Date Site/Laterality Comments CHOLECYSTECTOMY SECTION X 1 TUBAL LIGATION BREAST BIOPSY Right X 3 SINUS SURGERY X 2 APPENDECTOMY COLONOSCOPY CARPAL TUNNEL RELEASE Right ERCP 11/11/2021 stent removal BRAIN SURGERY MMA Embolization ORAL SURGERY Implant SHUNT EXTERNALIZATION Medical History Medical History Date Comments Arthritis Hypertension Peripheral neuropathy Restless leg syndrome Depression Low serum vitamin D CHF (congestive heart failure) (HCC) Arteriosclerosis of coronary artery 05/04/2021 Heart murmur Irregular heartbeat Neuropathy SOB (shortness of breath) CLIMBI NG STAIRS Wears glasses Dental bridge present Sleep apnea uses CPAP PONV (postoperative nausea and vomiting) relieved with IV medication Carpal tunnel syndrome Pancreatitis Atrial fibrillation (HCC) Hyperlipidemia GERD (gastroesophageal reflux disease) Dumping syndrome Type 2 diabetes mellitus diet co ntrolled Stress incontinence Brain bleed 06/2022 after a fall Basal cell carcinoma leg and chino k History of transfusion Brain concussion Heart disease Family History Medical History Relation Name Comments Heart attack Brother 1 Ivan Hypertension Brother 1 Ivan Heart attack Brother 2 Srini Hypertension Brother 2 Srini Stroke Brother 3 Ang Vision loss Brother 3 Ang Asthma Daughter Diane Arthritis Father Gene Family history of arthritis - (Added by TW Conv) Early Father Gene Heart attack Father Gene Heart disease Father Gene Family history of cardiac disorder - (Added by TW Conv) Hypertension Father Gene Family history of hypertension - (Added by TW Conv) Stroke Father Gene Family history of cerebrovascular accident (CVA) - (Added by TW Conv) Heart attack Father's Brother unknown Heart attack Father's Sister unknown Vision loss Maternal Grandfather Vitor Alzheimer's disease Mother Ileana Gomez Diabetes Mother Ileana Gomez Family history of diabetes mellitus - (Added by TW Conv) Hearing loss Mother Ileana Gomez Heart disease Mother Ileana Gomez Family history of cardiac disorder - (Added by TW Conv) Hypertension Mother Ileana Gomez Family history of hypertension - (Added by TW Conv) Kidney disease Mother Ileana Gomez Family histor y of kidney disease - (Added by TW Conv) Lung disease Mother Ileana Gomez Family history of lung disease - (Added by TW Conv) Anemia Sister 1 Patricia Arthritis Sister 1 Patricia Asthma Sister 1 Patricia COPD Sister 1 Patricia Clotting disorder Sister 1 Patricia Deep vein thrombosis Sister 1 Patricia Diabetes Sister 1 Patricia Early Sister 1 Patricia Heart attack Sister 1 Patricia Hypertension Sister 1 Patricia Kidney disease Sister 1 Patricia Obesity Sister 1 Patricia Hypertension Sister 2 Annamaria Depression Son Smith Anesthesia problems Neg Hx Relation Name Status Comments Brother 1 Ivan Other [place] age 50's Brother 2 Srini Alive [place] age 50's Brother 3 Ang Daughter Diane Father Gene (Age 62) [place] age 40s , TIA's age 50's Father's Brother unknown Father's Sister unknown Maternal Grandfather Vitor Mother Ileana Gomez (Age 82) Sister 1 Patricia [place] age 50 Sister 2 Annamaria Son Smith Social History Tobacco Use Types Packs/Day Years Used Date Smoking Tobacco: Never Smokeless Tobacco: Never Alcohol Use Standard Drinks/Week Comments Yes 1 (1 standard drink = 0.6 oz pur e alcohol) previously; now rarely drinks [facility] Utilities Answer Date Recorded In the past 12 months has [employer], gas, oil, or water company threatened to shut off services in your [...] week 06/07/2023 How often do you attend [facility] or judaism services? More than 4 times per year 06/07/2023 Do you belong to any clubs o r organizations such as mandaeism groups, unions, fraternal or athletic groups, or [...] place to sleep or slept in a jail (including now)? No 06/07/2023 Personal Safety Answer Date Recorded Have you ever been in or are you currently in a harmful physical or emotional relationship or is someone making you feel afraid or unsafe? Denies 06/07/2023 Comments No Sex and Gender Information Value Date Recorded Sex Assigned at Not on file Legal Sex Female 2:02 AM TRUCKER HAND Gender Identity Female 03/06/2020 2:31 PM CDT Sexual Orientation Straight 03/06/2020 2: 31 PM CDT Obstetrics History Last Filed Vital Signs Vital Sign Reading Time Taken Comments Blood Pressure 143/66 12/13/2024 3:43 PM CDT Pulse 65 10/01/2024 9:26 AM CDT Temperature 36.6 C (97.8 F) 06/08/2023 7:00 AM TRUCKER HAND Respiratory Rate 18 06/08/2023 7:00 AM TRUCKER HAND Oxygen Saturation 97% 10/19/2023 8:57 AM CDT Inhaled Oxygen Concentration - - Weight 102.4 kg (225 lb 12.8 oz) 12/13/2024 3:43 PM CDT Height 170.2 cm (5' 7) 12/13/2024 3:43 PM CDT Body Mass Index 35.37 12/13/2024 3:43 PM CDT Plan of Treatment Health Maintenance Due Date Last Done Comments Depression Screening 1954 Hepatitis C Screening 1954 Dilated Eye Exam 1954 Foot Exam 1954 Hepatitis B Screening 1972 Well Visit 65+ 2019 Albumin Creatinine Ratio, Urine 01/28/2024 Fall Risk Assessment 06/08/2024 06/08/2023 Covid-19 Vaccine (2023-2 5 season) 2024 02/25/2024, 03/02/2023, 03/06/2022, Additional history exists Osteoporosis Screening-Bone Density Scan 09/27/2024 09/27/2022, 11/19/2019 Influenza Vaccine (#1) 2025 , 03/02/2023, 02/10/2022, Additional history exists Hemoglobin A1C 04/03/2025 10/01/2024, 03/23, 12/02/2023, Additional history exists Lipid Panel 04/03/2025 04/03/2024, 07/22, 08/12/2022, Additional history exists Breast Cancer Screening-Mammogram 04/04/2025 04/04/2024, 04/04/2024, 02/23/2023, Additional history exists eGFR 10/02/2025 10/02/2024, 05/23, 05/31/2023, Additional history exists Colon Cancer Screening-Colonoscopy 05/23/2031 DTaP/Tdap/Td Vaccine (3 - Td or Tdap) 08/11/2032 08/11/2022, 11/06/2014 Zoster Vaccine Completed 01/10/2019, 11/12/2018 Pneumococcal vaccine 65+ Completed 11/30/2022, 0701/2023 Medical Devices Implanted Type Area Client Executive Device Identifier Shelf Expiration Date Model / Serial / Lot [employer] Percutaneous Transcatheter Amplatzer Amulet 25mm [id number] - [id number] Implanted:Qty: 1 on 06/07/2023 by Ghulam Crews MD at [facility] Left Atrial Appendage Occluder Left: Atrial Appendage [employer] 05/22/2027 [id number] / / [id number] [employer] [place] Advanix Naviflex 10fr 7cm Preload Radiopaque Rapid Exchange [id number] - [id number] Implanted:Qty: 1 on 09/28/2021 by Davy Pena MD at [facility] [employer] [place] 07/20/2023 [id number] / / [id number] Angio-Seal Vip 6fr Closere Device [id number] - [id number] Implanted:Qty: 1 on 08/12/2022 at [facility] [employer] 02/19/2023 [id number] / / [id number] [employer] Device Clsr Perclose Prostyle Sut-Mediatd Closure-Repair Sys [id number] - [id number] Implanted:Qty: 1 on 06/07/2023 by Ghulam Crews MD at [facility] N/A: Femoral Vein [employer] 03/22/2025 [id number] / / [id number] Procedures Procedure Name Priority Date/Time Associated Diagnosis [...] POCT LIPID PANEL Routine 04/03/2024 9:46 AM TRUCKER HAND Mixed hyperlipidemia ALBUMIN CREATININE RATIO, URINE Routine 01/27/2023 10:27 AM CDT Type 2 diabetes mellitus without complication, without long-term current use of insulin (HCC) Essential hypertension Mixed hyperlipidemia History of CHF (congestive heart failure) Subdural hematoma (HCC) from Last 3 Months or Most Recently Relevant to Health Maintenance Results * SCAN - RADIOLOGY/IMAGING (10/29/2024 7:55 AM CDT) Anatomical Region Laterality Modality Other us Smith Madrid MD Final Result * eGFR [...] CDT 10/02/2024 2:04 PM CDT us Smith Madrid MD LAB BLOOD ORDERABLES Final Re sult Performing Organization Address City/[facility]/ZIP Co de Phone Number [facility] Department [place] [address] * TSH (10/02/2024 12:20 PM CDT) Pathologist [facility] Thyroid Stimulating Hormone 0.99 0.30 - 4.20 mcIUnit/mL Blood 10/02/2024 12:2 0 PM CDT 10/02/2024 1:49 PM CDT us Smith Madrid MD LAB BLOOD ORDERABLES Final Re sult Performing Organization Address [facility] Co de Phone Number [facility] Department [place] [address] * Comprehensive metabolic panel (10/02/2024 12:20 PM CDT) Pathologist [facility] Sodium 144 135 - 145 mmol/L Potassium, pl 4.5 3.3 - 4.9 mmol/L [facility] Chloride 110 97 - 110 mmol/L [facility] CO2 26 22 - 32 mmol/L [facility] Anion gap 8 2 - 15 mmol/L [facility] BUN 22 6 - 25 mg/dL [facility] Creatinine 0.95 0.60 - 1.10 mg/dL [facility] Glucose 99 70 - 199 mg/dL [facility] Comment: Interpretive Data Fasting glucose >/= 126 [...] classification and Diagnosis of Diabetes Diabetes Care 2021; 46: S19-S40. Current interpretive data was last revised 2022. Calcium 9.5 8.5 - 10.3 mg/dL [facility] Bilirubin, total 0.4 0.1 - 1.2 mg/dL [facility] Protein, pl 6.6 6.5 - 8.5 g/dL [facility] Albumin 4.6 3.5 - 5.0 g/dL [facility] Alk phos 110 40 - 130 Units/L [facility] ALT 21 7 - 45 Units/L [facility] AST 21 10 - 45 Units/L [facility] Blood 10/02/2024 12:2 0 PM CDT 10/02/2024 1:49 PM CDT us Smith Madrid MD LAB BLOOD ORDERABLES Final Re sult [facility] Department [place] [address] * (ABNORMAL) POCT hemoglobin A1c (10/01/2024 9:38 AM CDT) Hemoglobin A1C, POC 5.8(A) 4.0 - 5.6 % Capillary blood 10/01/2024 9 :38 AM CDT us Smith Madrid MD POINT OF CARE TEST ORDERABLES Final Result * POCT lipid panel (04/03/2024 9:46 AM TRUCKER HAND) Cholesterol, POC 134 mg/dL HDL, POC 33 mg/dL Triglycerides, POC 115 mg/dL LDL Cholesterol POC 78 mg/dL Chol/HDL Ratio, POC 4.1 Non-HDL Cholesterol, POC 101 mg/dL Cholesterol Total, POC 134 mg/dL Capillary blood 04/03/2024 9 :46 AM TRUCKER HAND us Smith Madrid MD POINT OF CARE [...] AM CDT Performed at: 01 - [facility] [address] [id number] Unitizer: Deyvi Solis PhD, Phone: [phone] Smith Madrid MD LAB URINE ORDERABLES Final Re sult [facility] - 01 from Last 3 Months or Most Recently Relevant to Health Maintenance Insurance MEDICARE [employer] [facility] MAIL [employer]IL [employer] MEDICARE Advance Directives For more information, please contact: [phone] Documents on File Type Date Recorded Patient Kiln Door Builder Expl anation ADVANCE DIRECTIVE 08/27/2021 7:12 AM Power of Plate Cleaner-Medical ADVANCE DIRECTIVE 03/08/2018 12:00 AM POW ER OF DEEP FRYER ASSEMBLER FINANCIAL/MEDICAL * Full Code (Latest Code Status [...] 10:18 PM 05/23/2020 11:16 PM Care Teams Veterinary Bacteriologist Relationship Specialty Start Date End Date Smith Madrid MD PCP - General 08/18/16 [place] [id number] [address] Consulting Physician Cardiology 05/14/20 [place] [id number] [address] Consulting Physician Gastroenterology 09/29/21 [place] [address] [address] Consulting Physician Interventional Cardiology 09/30/21 Naomi George MD [address] [place] [address] Consulting Physician Neurology 11/01/21 Smith Madrid MD Referring Physician Internal Medicine 11/04/21
--- OUTSIDE RECORDS SUMMARY | 2024-12-25 10:49 | XMS_ITS | Clinical Summary ---
Author Organization [facility] Address [address] [place] [id number] Care Team Providers Care Pulp Press Tender Name Role Phone Teddy Madrid MD Primary Care Provider [phone] Social History Tobacco Use Types Packs/Day Years Used Date Smoking Tobacco: Never Assessed Comments No Sex and Gender Information Value Date Recorded Sex Assigned at Female 02/16/2023 11:13 AM CDT Legal Sex Female 4:12 PM CDT Gender Identity Female 02/16/2023 11:13 AM CDT Sexual Orientation Not on file Plan of Treatment Health Maintenance Due Date Last Done Comments Colorectal Cancer Screening Colonoscopy (10 Years) 1955 Hepatitis C 1972 Annual Medicare Wellness Visit 2019 COVID-19 Vaccine ( season) 2024 DTaP, Tdap and Td Vaccines (2 - Td or Tdap) 11/06/2024 11/06/2014 Mammogram Screening 04/04/2026 04/04/2024, 02/23/2023, 12/30/2021, Additional history exists RSV Immunization or 60+ Years (1 - 1-dose 75+ series) 2029 Zoster Vaccines Completed 01/10/2019, 11/12/2018 Dexa Scan (General) Completed 11/19/2019 Pneumococcal Vaccine: 50+ Years Completed 11/30/2022 Meningococcal B Vaccine Aged Out No l onger eligible based on patient's age to complete this topic Meningococcal Vaccine Aged Out No valerie forrest eligible based on patient's age to complete this topic RSV Immunizations Under 20 Months Aged Out No longer eligible based on patient's age to complete this topic Procedures Procedure Name Priority Date/Time Associated Diagnosis Comments MG SCREENING W TOMMY ELIDA DIGI Routine 04/04/2024 9:30 AM TOOLROOM ATTENDANT Screening mammogram, encounter for BONE DENSITY/DEXA Routine 11/19/2019 8:5 0 AM CDT Asymptomatic menopausal state from Last 3 Months or Most Recently Relevant to Health Maintenance Results * MG SCREENING W TOMMY ELIDA DIGI (04/04/2024 9:30 AM TOOLROOM ATTENDANT) Anatomical Region Laterality Modality Breast Bilateral Mammography 04/04/2024 12:1 1 PM TOOLROOM ATTENDANT Impressions 04/04/2024 12:14 PM TOOLROOM ATTENDANT ===== IMPRESSION: ===== 1. Stable mammographic appearance with no new findings to suggest malignancy in either breast. Assessment: ACR BI-RADS 2 - BENIGN FINDING(S) Recommendation: 1:Routine Screening Bilateral Comments: Ordered By: TEDDY MADRID Interpreted By: Edison Pelayo, 04/04/2024 12:11 PM Narrative 04/04/2024 12:14 PM TOOLROOM ATTENDANT [facility] [address] [place] [address] EXAMINATION: Digital bilateral screening mammogram with 3-D tomosynthesis EXAM DATE/TIME: 04/04/2024 9:14 AM REASON FOR EXAM: Screening mammogram Benign right breast biopsy in 2013. COMPARISON: 12/30/2021.. 02/23/2023 Technique: Digital screening mammography of both breasts was performed in addition to 3-D Tomosynthesis technique. This study was read with the assistance of a computer-aided detection system. Tissue density: There are scattered areas of fibroglandular density. Findings: Right breast biopsy clips noted. There is no new focal asymmetry, dominant mass lesion, area of skin thickening, or cluster of suspicious appearing calcifications in either breast to suggest malignancy. us Teddy Madrid MD MAMMO Final Result * BONE DENSITY/DEXA (11/19/2019 8:50 AM CDT) Anatomical Region Laterality Modality Bone Mammography 11/19/2019 9:42 AM CDT Impressions 11/19/2019 9:44 AM CDT Impression: BMD measured at AP lumbar spine, both total hips and both femoral necks at WHO category level of normal. Narrative 11/19/2019 9:44 AM CDT Examination: DEXA Bone densitometry EXAM DATE: 11/19/2019 8:27 AM Clinical history: Postmenopausal. Calcium supplementation. Vitamin D use. Dairy product consumption. Technique: DEXA bone minimal density evaluation was performed in the AP projection over the lumbar spine and over both hips in the AP projection utilizing standard imaging techniques. Assessment: The BMD measured at the AP spine L1-L4 is 1.230 g/cm? with a T-score of 1.7 and a Z-Score of 3.5. Bone density is up to 10% below young normal. This patient is considered normal according to the World Health Organization (WHO) criteria. Fracture risk is low. The BMD measured at the femur total left is 1.207 g/cm? with a T-score of 2.2 and a Z-Score of 3.4. Bone density is up to 10% below young normal. This patient is considered normal according to the World Health Organization (WHO) criteria. Fracture risk is low. The BMD measured at the left femoral neck is 1.026 g/sq cm resulting in a T score of 1.6 and a Z score 3.1, values at the WHO category level of normal. The BMD measured at the femur total right is 1.172 g/cm? with a T-score of 1.9 and aZ-Score of 3.1. Bone density is up to 10% below young normal. This patient is considered normal according to the World Health Organization (WHO) criteria. Fracture risk is low. The BMD measured at the right femoral neck is 1.068 g/sq cm resulting in a T score of 2.0 and a Z score 3.5, values at the WHO category level of normal. FRAX results: 10 year probability of major osteoporotic fracture 4.9% and of hip fracture 0.1%. Recommendations: All patients should ensure an adequate intake of dietary calcium and vitamin D. The NOF recommend adults under the age of 50 need 1000 mg of calcium and 400-800 IU of vitamin D daily. Effective therapy for the prevention and treatment of osteoporosis include biphosphonates. Follow-up: People with diagnosed cases of osteoporosis or at high risk for fracture should have regular bone mineral density test. For patients eligible for Medicare, routine testing is allowed once every 2 years. Testing frequency can be increased to one year for patients who have rapidly progressing disease, those who are receiving or discontinuing medical therapy to restore bone mass, or have additional risk factors. Based on these results, a followup exam is recommended in no earlier than 2 years. Procedure Note Sarthak Alexandra MD - 11/19/2019 Examination: DEXA Bone densitometry EXAM DATE: 11/19/2019 8:27 AM Clinical history: Postmenopausal. Calcium supplementation. Vitamin Duse. Dairy product consumption. Technique: DEXA bone minimal density evaluation was performed in the AP projection over the lumbar spine and over both hips in the AP projection utilizing standard imaging techniques. Assessment: The BMD measured at the AP spine L1-L4 is 1.230 g/cm? with a T-score of1.7 and a Z-Score of 3.5. Bone density is up to 10% below young normal.This patient is considered normal according to the World Health Organization (WHO) criteria. Fracture risk is low. The BMD measured at the femur total left is 1.207 g/cm? with a T-scoreof 2.2 and a Z-Score of 3.4. Bone density is up to 10% below youngnormal. This patient is considered normal according to the World Health Organization (WHO) criteria. Fracture risk is low. The BMD measured at the left femoral neck is 1.026 g/sq cm resulting in aT score of 1.6 and a Z score 3.1, values at the WHO category level ofnormal. The BMD measured at the femur total right is 1.172 g/cm? with a T-scoreof 1.9 and aZ-Score of 3.1. Bone density is up to 10% below youngnormal. This patient is considered normal according to the World Health Organization (WHO) criteria. Fracture risk is low. The BMD measured at the right femoral neck is 1.068 g/sq cm resulting julián T score of 2.0 and a Z score 3.5, values at the WHO category level of normal. FRAX results: 10 year probability of major osteoporotic fracture 4.9%and of hip fracture 0.1%. Recommendations: All patients should ensure an adequate intake of dietary calcium and vitamin D. The NOF recommend adults under the age of 50 need 1000 mg of calcium and 400-800 IU of vitamin D daily. Effective therapy for the prevention and treatment of osteoporosis include biphosphonates. Follow-up: People with diagnosed cases of osteoporosis or at high risk for fracture should have regular bone mineral density test. For patients eligible for Medicare, routine testing is allowed once every 2 years. Testingfrequency can be increased to one year for patients who have rapidly progressing disease, those who are receiving or discontinuing medical therapy to restore bone mass, or have additional risk factors. Based on these results, a followup exam is recommended in no earlier than2 years. Impression: BMD measured at AP lumbar spine, both total hips and both femoral necksat WHO category level of normal. Ray Johnson MD DEXA Final Result from Last 3 Months or Most Recently Relevant to Health Maintenance Insurance [place] [address] [place] [phone] [facility] Care Teams Pulp Press Tender Relationship Specialty Start Date End Date Teddy Madrid MD [address] [address] PCP - General 10/13/15
--- OUTSIDE RECORDS SUMMARY | 2024-12-25 10:49 | XMS_ITS | Encounter Summary ---
Author Organization [facility] Address [address] [place] [address] Phone Care Team Providers Care Professor Of Food Biochemistry Name Role Phone Smith Madrid MD Primary Care Provider [phone] Olga Macias MD Unavailable Davy Pena MD Unavailable Ghulam Crews MD Unavailable [phone] LyNaomi MD Unavailable Smith Madrid MD Unavailable [phone] Encounter Details Date Type Department Care Team (Late st Contact Info) Description 03/10/2020 Orders Only [facility] NEUROMUSCLE Scanning, Provider Social History Tobacco Use Types Packs/Day Years Used Date Smoking Tobacco: Never Smokeless Tobacco: Never Alcohol Use Standard Drinks/Week Comments Yes 1 (1 standard drink = 0.6 oz pur e alcohol) Comments Unknown Sex and Gender Information Value Date Recorded Sex Assigned at Not on file Legal Sex Female 2:02 AM GEOLOGICAL SCIENCE TEACHER Gender Identity Female 03/06/2020 2:31 PM CDT Sexual Orientation Straight 03/06/2020 2: 31 PM CDT documented as of this encounter Plan of Treatment Not on file documented as of this encounter Procedures Procedure Name Priority Date/Time Associated Diagnosis Comments SCAN - LABS 03/10/2020 documented in this encounter Results * SCAN - LABS (03/10/2020) us Provider Scanning Final Result documented in this encounter Visit Diagnoses Not on filedocumented in this encounter Additional Health Concerns Infection Onset Date Last Indicated Resolved Time COVID: Suspected 05/13/2020 05/13/2020 05/13/2020 3:11 AM GEOLOGICAL SCIENCE TEACHER Respiratory Infection (ELEAZAR), contact + droplet Comment:Negative COVID-19 result, an alternative Dx has been determined per the bedside CHAO Willis RN 05/14/20 05/13/2020 05/13/2020 05/14/2020 7:[address] COVID: Suspected 05/23/2020 05/23/2020 05/23/2020 8:50 PM GEOLOGICAL SCIENCE TEACHER Respiratory Infection (ELEAZAR), contact + droplet Comment:Automatically added due to negative COVID-19 result. 05/23/2020 05/23/2020 06/06/2020 3:0 6 AM GEOLOGICAL SCIENCE TEACHER documented as of this encounter Care Teams Professor Of Food Biochemistry Relationship Specialty Start Date End Date Smith Madrid MD PCP - General 08/18/16 [place] [id number] [address] Consulting Physician Cardiology 05/14/20 [place] [id number] [address] Consulting Physician Gastroenterology 09/29/21 [place] [id number] [address] Consulting Physician Interventional Cardiology 09/30/21 Naomi George MD [address] [place] [address] Consulting Physician Neurology 11/01/21 Smith Madrid MD Referring Physician Internal Medicine 11/04/21 documented as of this encounter
--- OUTSIDE RECORDS SUMMARY | 2024-12-25 10:49 | XMS_ITS | Clinical Summary ---
Author Organization [facility] Address [address] [place] [id number] Care Team Providers Care Cooker Mechanic Name Role Phone Unavailable Primary Care Provider Unavailabl e Social History Tobacco Use Types Packs/Day Years Used Date Smoking Tobacco: Never Assessed Comments Unknown Sex and Gender Information Value Date Recorded Sex Assigned at Not on file Legal Sex Female 12:45 PM COMPUTER PROJECT MANAGER Gender Identity Not on file Sexual Orientation Not on file Plan of Treatment Health Maintenance Due Date Last Done Comments Hepatitis C Virus (HCV) Screening 1955 Cologuard 1999 Colonoscopy 1999 Colorectal Cancer Screening 1999 Immunochemical Fecal Occult Blood 1999 Pneumococcal Immunization (5 0+ years) (1 of 1 - PCV) 2004 Zoster Immunization (1 of 2) 2004 SARS-COV-2 Immunization ( - season) 2024 Influenza Immunization (#1) 01/21/202506/2015, 02/19/2015, 02/01/2013 Respiratory Syncytial Virus (RSV) Immunization (Adult) (1 - 1-dose 75+ series) 2029 DTaP/Tdap/Td Immunization Discontinued 11/06/2014 TdaP Immunization Completed 11/06/2014 Hepatitis B Immunization Aged Out No longer eligible based on patient's age to complete this topic Human Papillomavirus (HPV) Immunization Aged Out No longer eligible based on patient's age to complete this topic Meningococcal Immunization (ACWY) Aged Out No longer eligible based on patient's age to complete this topic Rotavirus Immunization Aged Out No lo nger eligible based on patient's age to complete this topic
[2024-12-25 11:01] LABS: Anion Gap 6 mmol/L (4-12); Blood Urea Nitrogen 17 mg/dL (7-17); Calcium 9.3 mg/dL (8.4-10.2); Carbon Dioxide 28 mmol/L (22-30); Chloride 106 mmol/L (98-107); Estimated Glomerular Filt Rate > 60; Glucose 114 mg/dL (65-110); Potassium 4.3 mmol/L (3.4-5.0); Sodium 140 mmol/L (137-145)
== END 2024-12-25 10:07 | disposition home or self-care (01) ==
LOC: ANHLAB 10:24
PROVIDERS: PCP Internal Medicine; Visit Provider Anesthesiology
DX: Z01.818 Encounter for other preprocedural examination (principal); M67.449 Ganglion, unspecified hand
CPT/HCPCS: 36415; 80048; 93005

== ENCOUNTER 2025-01-03 05:58 | Day surgery (SDC) | payer MEDICARE, OTHER, SELFPAY ==
[2024-12-19 10:26] VITALS: BMI 35.2
--- OUTSIDE RECORDS SUMMARY | 2025-01-03 06:03 | XMS_ITS | Encounter Summary ---
Author Organization [facility] Address [address] [place] [address] Care Team Providers Care Dye Range Operator Name Role Phone Unavailable Primary Care Provider Unavailabl e Encounter Details Date Type Department Care Team (Late st Contact Info) Description 09/05/2020 Lab Requisition [facility] [address] [place] [address] Felix Sidhu MD [address] [place] [address] Social History Tobacco Use Types Packs/Day Years Used Date Smoking Tobacco: Never Assessed Comments Unknown Sex and Gender Information Value Date Recorded Sex Assigned at Not on file Legal Sex Female 6:52 PM MOTOR MAN Gender Identity Not on file Sexual Orientation Not on file documented as of this encounter Plan of Treatment Not on file documented as of this encounter Procedures Procedure Name Priority Date/Time Associated Diagnosis Comments DERMATOPATHOLOGY Routine 09/03/2020 12:0 0 AM CDT documented in this encounter Results * DERMATOPATHOLOGY (09/03/2020 12:00 AM CDT) Case Report Dermatopathology Report Case: [id number] Authorizing Provider: Felix Sidhu MD Collected: 09/03/2020 12:00 AM Ordering Location: [facility] Received: 09/05/2020 08:32 AM Pathologist: Gauri Titus MD Specimen: Skin, midline upper back 1 1:45 PM CDT DERMATOPATHOLOGY LABORATORY Final Diagnosis Specimen A. SKIN, midline upper back: HEALING SKIN CHANGES (L90.5) PRESENT AT MARGIN 1 1:45 PM CDT DERMATOPATHOLOGY LABORATORY at 1345 CDT Clinical History Bx proven BCC, superficial multifocal. Previous Bx: [id number]. 1 1:45 PM CDT DERMATOPATHOLOGY LABORATORY Gross Description Specimen A: Received is one formalin filled container labeled with the patient's name and designated midline upper back. The specimen consists of a curettage and desiccation biopsy measuring [id number], the margin is inked green. Jar 0. [...] characteristic determined by the Dermatopathology Laboratory at [facility], directed by Dr. Clau Titus. These tests need not be, and therefore are not, approved by the [place] Food and Drug Administration. The tests are used for clinical purposes. Billing Codes Specimen Charges Stain Charges 28127 1 1 1:45 PM CDT DERMATOPATHOLOGY LABORATORY Embedded Images 1 1:45 PM CDT DERMATOPATHOLOGY LABORATORY Pathology/Cytolog y TISSUE SPECIMEN FROM SKIN / Unknown 09/03/2020 09/05/2020 8:32 AM CDT Felix Sidhu MD LAB - PATHOLOGY/CYTOLOGY ORD ERABLES Final Result DERMATOPATHOLOGY LABORATORY [facility] - Department of Dermatology [address] [phone] documented in this encounter Visit Diagnoses Not on filedocumented in this encounter
--- OUTSIDE RECORDS SUMMARY | 2025-01-03 06:03 | XMS_ITS | Clinical Summary ---
Author Organization [facility] Address [address] [place] [address] Care Team Providers Care Register In Chancery Name Role Phone Smith Madrid MD Primary Care Provider [phone] Olga Macias MD Unavailable Davy Pena MD Unavailable Ghulam Crews MD Unavailable [phone] Naomi George MD Unavailable Smith Madrid MD Unavailable [phone] Allergies Active Allergy Reactions Criticality Noted [...] SUGAR ONCE DAILY 100 each 1 Active ezetimibe (ZETIA) 10 mg tablet Take [...] day Once for new outbreak 10 tablet 025 Active progesterone (PROMETRIUM) 200 mg capsule 025 Active estradioL (ESTRACE) 0.01 % (0.1 mg/gram) [...] AT BEDTIME 90 tablet 1 025 Active losartan (COZAAR) 50 mg tablet Take 1 tablet (50 mg total) by mouth daily 90 tablet 2 025 Active losartan (COZAAR) 50 mg tablet Take 1 tablet (50 mg total) by mouth daily 024 2024 Discontinued(R eorder) montelukast (SINGULAIR) 10 mg tablet TAKE 1 [...] 06/24/2022 Assessment & Plan (06/24/2022 12:00 PM AUTOMATIC ENGRAVER): Heat PRN MDP and tizanidine PRN (use, s/e reviewed) May do activity as tolerated, stop if pain returns BMI 34.0-34.9,adult 11/04/2021 History of CHF (congestive heart failure) 2021 Gallstone pancreatitis 10/13/2021 Overview (10/13/2021): Added automatically from request for surgery [id number] Jaundice 09/22/2021 Overview (09/28/2021): Added automatically from request for surgery [id number] Bilateral carpal tunnel syndrome 08/03/2021 Family history [...] reduction. Assessment & Plan (06/16/2020 9:14 AM AUTOMATIC ENGRAVER): bp at target. Resolved Problems Problem Noted Date Diagnosed Date Resolved Date Chest pain 09/22/2021 06/24/2022 Acute maxillary sinusitis 06/16/2020 Assessment & Plan (06/16/2020 9:15 AM AUTOMATIC ENGRAVER): Will give cefuroxime. Encounters Date Type Department Care Team Description 12/25/2024 Orders Only [facility] [address] [place] [address] [place] [phone] Smith Madrid MD 12/13/2024 4:00 PM CDT Office Visit [facility] Neuro Muscle [address] [facility] 6th [place] [address] [place] [address] Naomi George MD Hereditary and idiopathic neuropathy, unspecified (Primary Dx) 11/30/2024 Orders Only [facility] [address] [place] [address] Maite Hawthorne RMA Family history of hemochromatosis (Primary Dx) 10/29/2024 Results Follow-Up [facility] [address] [place] [phone] Smith Madrid MD SCAN - RADIOLOGY/IMAGING 10/29/2024 Orders Only [facility] [address] [address] Smith Madrid MD from Last 3 Months Immunizations Immunization Administration [...] Name Status Comments Brother 1 Ivan Other NE age 50's Brother 2 Srini Alive NE age 50's Brother 3 Ang Daughter Diane Father Gene (Age 62) NE age 40s , TIA's age 50's Father's Brother unknown Father's Sister unknown Maternal Grandfather Vitor Mother Ileana Gomez (Age 82) Sister 1 Patricia NE age 50 Sister 2 Annamaria Son Smith Social History Tobacco Use Types Packs/Day Years Used Date Smoking Tobacco: Never Smokeless Tobacco: Never Alcohol Use Standard Drinks/Week Comments Yes 1 (1 standard drink = 0.6 oz pur e alcohol) previously; now rarely drinks [facility] Utilities Answer Date Recorded In the past 12 months has th e electric, gas, oil, or water company threatened to shut off services in your home? No 06/07/2023 Social Connection and Isolation Panel Answer Date Recorded In a typical week, how many times do you talk on the phone with family, friends, or neighbors? More than three times a week 06/07/2023 How often do you get togethe r with friends or relatives? More than three times a week 06/07/2023 How often do you attend chur ch or gnosticist services? More than 4 times per year 06/07/2023 Do you belong to any clubs o r organizations such as zoroastrian groups, unions, fraternal or athletic groups, or [...] place to sleep or slept in a longterm (including now)? No 06/07/2023 Personal Safety Answer Date Recorded Have you ever been in or are you currently in a harmful physical or emotional relationship or is someone making you feel afraid or unsafe? Denies 06/07/2023 Comments No Sex and Gender Information Value Date Recorded Sex Assigned at Not on file Legal Sex Female 2:02 AM AUTOMATIC ENGRAVER Gender Identity Female 03/06/2020 2:31 PM CDT Sexual Orientation Straight 03/06/2020 2: 31 PM CDT Obstetrics History Last Filed Vital Signs Vital Sign Reading Time Taken Comments Blood Pressure 143/66 12/13/2024 3:43 PM CDT Pulse 65 10/01/2024 9:26 AM CDT Temperature 36.6 C (97.8 F) 06/08/2023 7:00 AM AUTOMATIC ENGRAVER Respiratory Rate 18 06/08/2023 7:00 AM AUTOMATIC ENGRAVER Oxygen Saturation 97% 10/19/2023 8:57 AM CDT [...] 65+ 2019 Albumin Creatinine Ratio, Urine 01/28/2024 3 Fall Risk Assessment 06/08/2024 06/08/2023 Covid-19 Vaccine (2023-06 5 season) 2024 02/25/2024, 03/02/2023, 03/06/2022, Additional [...] 01/10/2019, 11/12/2018 Pneumococcal vaccine 65+ Completed 11/30/2022, 01/2023 Medical Devices Implanted Type Area Structural Mill Supervisor Device Identifier Shelf Expiration Date Model / Serial / Lot [employer] Percutaneous Transcatheter Amplatzer Amulet 25mm [id number] - [id number] Implanted:Qty: 1 on 06/07/2023 by Ghulam Crews MD at [facility] Left Atrial Appendage Occluder Left: Atrial Appendage [employer] 05/22/2027 [id number] / / [id number] [employer] [place] Advanix Naviflex 10fr 7cm Preload Radiopaque Rapid Exchange [id number] - [id number] Implanted:Qty: 1 on 09/28/2021 by Davy Pena MD at [facility] [employer] 07/20/2023 [id number] / / [id number] [employer] Mitlon Angio-Seal Vip 6fr Closere Device [id number] - [id number] Implanted:Qty: 1 on 08/12/2022 at [facility] [employer] 02/19/2023 [id number] / / [id number] [employer] Device Clsr Perclose Prostyle Sut-Mediatd Closure-Repair Sys [id number] - [id number] Implanted:Qty: 1 on 06/07/2023 by Ghulam Crews MD at [facility] N/A: Femoral Vein [employer] 03/22/2025 [id number] / / [id number] Procedures Procedure Name Priority Date/Time Associated Diagnosis Comments SCAN - LABS 12/25/2024 2:55 PM CDT SCAN - RADIOLOGY/IMAGING 10/29/2024 7:55 AM CDT [...] POCT LIPID PANEL Routine 04/03/2024 9:46 AM AUTOMATIC ENGRAVER Mixed hyperlipidemia ALBUMIN CREATININE RATIO, URINE Routine 01/27/2023 10:27 AM CDT Type 2 diabetes mellitus without complication, without long-term current use of insulin (HCC) Essential hypertension Mixed hyperlipidemia History of CHF (congestive heart failure) Subdural hematoma (HCC) from Last 3 Months or Most Recently Relevant to Health Maintenance Results * SCAN - LABS (12/25/2024 2:55 PM CDT) us Smith Madrid MD Final Result * SCAN - RADIOLOGY/IMAGING (10/29/2024 7:55 AM [...] of Race in Diagnosing Kidney Disease, JASN 2020). The CKD-EPI equation should not be used for patients with unstable renal function and has not been validated in children and those over 70. Current interpretive data was last reviewed 2021. Blood 10/02/2024 12:2 0 PM CDT 10/02/2024 2:04 PM CDT us Smith Madrid MD LAB BLOOD ORDERABLES Final Re sult [facility] Department [place] [address] * (ABNORMAL) POCT hemoglobin A1c (10/01/2024 9:38 AM CDT) Hemoglobin A1C, POC 5.8(A) 4.0 - 5.6 % Capillary blood 10/01/2024 9 :38 AM CDT us Smith Madrid MD POINT OF CARE TEST ORDERABLES Final Result * POCT lipid panel (04/03/2024 9:46 AM AUTOMATIC ENGRAVER) Cholesterol, POC 134 mg/dL HDL, POC 33 mg/dL Triglycerides, POC 115 mg/dL LDL Cholesterol POC 78 mg/dL Chol/HDL Ratio, POC 4.1 Non-HDL Cholesterol, POC 101 mg/dL Cholesterol Total, POC 134 mg/dL Capillary blood 04/03/2024 9 :46 AM AUTOMATIC ENGRAVER Smith Madrid MD POINT OF CARE TEST [...] - 01/28/2023 10:11 AM CDT Performed at: - [facility] [address] Oiler Bander: Deyvi Solis PhD, Phone: [phone] Smith Madrid MD LAB URINE ORDERABLES Final Re sult Performing Organization Address City/State/[facility] Co de Phone Number [facility] - 01 from Last 3 Months or Most Recently Relevant to Health Maintenance Insurance MEDICARE [employer]IL [employer] MEDICARE [facility] Address: [facility] [address] [place] [address] [facility] MAIL HANDLERS MAIL [employer] MEDICARE Advance Directives For more information, please contact: [phone] Documents on File Type Date Recorded Patient Airport Control Operator Expl anation ADVANCE DIRECTIVE 08/27/2021 7:12 AM Power of Ironworker Apprentice Shop-Medical ADVANCE DIRECTIVE 03/08/2018 12:00 AM [facility] CLIENT SERVICES ASSOCIATE FINANCIAL/MEDICAL * Full Code (Latest Code Status [...] 10:18 PM 05/23/2020 11:16 PM Care Teams Register In Chancery Relationship Specialty Start Date End Date Smith Madrid MD PCP - General 08/18/16 [place] [address] [address] Consulting Physician Cardiology 05/14/20 [place] [address] [address] Consulting Physician Gastroenterology 09/29/21 [place] [address] [address] Consulting Physician Interventional Cardiology 09/30/21 Naomi George MD [address] [place] [address] Consulting Physician Neurology 11/01/21 Smith Madrid MD Referring Physician Internal Medicine 11/04/21
--- OUTSIDE RECORDS SUMMARY | 2025-01-03 06:03 | XMS_ITS | Clinical Summary ---
Author Organization 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
--- OUTSIDE RECORDS SUMMARY | 2025-01-03 06:03 | XMS_ITS | Encounter Summary ---
Author Organization [facility] Address [address] [place] [address] Care Team Providers Care Security Attendant Name Role Phone Unavailable Primary Care Provider Unavailabl e Encounter Details Date Type Department Care Team (Late st Contact Info) Description 08/12/[address] [facility] [address] [place] [address] Felix Sidhu MD [address] [place] [address] Social History Tobacco Use Types Packs/Day Years Used Date Smoking Tobacco: Never Assessed Comments Unknown Sex and Gender Information Value Date Recorded Sex Assigned at Not on file Legal Sex Female 6:52 PM SIMONIZER Gender Identity Not on file Sexual Orientation Not on file documented as of this encounter Plan of Treatment Not on file documented as of this encounter Procedures Procedure Name Priority Date/Time Associated Diagnosis Comments DERMATOPATHOLOGY Routine 08/11/2020 12:0 0 AM CDT documented in this encounter Results * DERMATOPATHOLOGY (08/11/2020 12:00 AM CDT) Case Report Dermatopathology Report Case: [id number] Authorizing Provider: Felix Sidhu MD Collected: 08/11/2020 12:00 AM Ordering Location: [facility] Received: 08/12/2020 12:28 PM Pathologist: [...] specimen consists of a shave biopsy measuring [id number]. Jar 0. 12:53 PM CDT DERMATOPATHOLOGY LABORATORY [...] characteristic determined by the Dermatopathology Laboratory at [facility], directed by Dr. Clau Titus. These tests need not be, and therefore are not, approved by the [place] Food and Drug Administration. The tests are used for clinical purposes. Billing Codes Specimen Charges Stain Charges 90453 1 12:53 PM CDT DERMATOPATHOLOGY LABORATORY Embedded Images 12:53 PM CDT DERMATOPATHOLOGY LABORATORY Pathology/Cytolog y TISSUE SPECIMEN FROM SKIN / Unknown 08/11/2020 08/12/2020 12:28 PM CDT Felix Sidhu MD LAB - PATHOLOGY/CYTOLOGY ORD ERABLES Final Result DERMATOPATHOLOGY LABORATORY [facility] - Department of Dermatology [address] [place] [address], [facility] [phone] documented in this encounter Visit Diagnoses Not on filedocumented in this encounter
--- OUTSIDE RECORDS SUMMARY | 2025-01-03 06:03 | XMS_ITS | Clinical Summary ---
Author Organization [facility] Address [address] [place] [address] Care Team Providers Care Web Development Intern Name Role Phone Teddy Madrid MD Primary Care Provider [phone] Social History Tobacco Use Types Packs/Day Years [...] TOMMY ELIDA DIGI Routine 04/04/2024 9:30 AM NAUTICAL INSTRUMENT MECHANIC Screening mammogram, encounter for BONE DENSITY/DEXA Routine 11/19/2019 8:5 0 AM CDT Asymptomatic menopausal state from Last 3 Months or Most Recently Relevant to Health Maintenance Results * MG SCREENING W TOMMY ELIDA DIGI (04/04/2024 9:30 AM NAUTICAL INSTRUMENT MECHANIC) Anatomical Region Laterality Modality Breast Bilateral Mammography 04/04/2024 12:1 1 PM NAUTICAL INSTRUMENT MECHANIC Impressions 04/04/2024 12:14 PM NAUTICAL INSTRUMENT MECHANIC ===== IMPRESSION: ===== 1. Stable mammographic appearance with no new findings to suggest malignancy in either breast. Assessment: ACR BI-RADS 2 - BENIGN FINDING(S) Recommendation: 1:Routine Screening Bilateral Comments: Ordered By: TEDDY MADRID Interpreted By: Edison Pelayo, 04/04/2024 12:11 PM Narrative 04/04/2024 12:14 PM NAUTICAL INSTRUMENT MECHANIC [facility] [address] [place] [address] EXAMINATION: Digital bilateral screening mammogram with 3-D [...] Recently Relevant to Health Maintenance Insurance MEDICARE [facility] Care Teams Web Development Intern Relationship Specialty Start Date End Date Teddy Madrid MD [address] [address] PCP - General 10/13/15
--- OUTSIDE RECORDS SUMMARY | 2025-01-03 06:03 | XMS_ITS | Encounter Summary ---
Author Organization [facility] Address [address] [place] [address] Phone Care Team Providers Care Cloth Dyer Name Role Phone Smith Madrid MD Primary Care Provider [phone] Olga Macias MD Unavailable Davy Pena MD Unavailable Ghulam Crews MD Unavailable [phone] LyNaomi MD Unavailable Smith Madrid MD Unavailable [phone] Encounter Details Date Type Department Care [...] on file Legal Sex Female 2:02 AM SUPERVISORY AIDE Gender Identity Female 03/06/2020 2:31 PM CDT [...] COVID: Suspected 05/13/2020 05/13/2020 05/13/2020 3:11 AM SUPERVISORY AIDE Respiratory Infection (ELEAZAR), contact + droplet Comment:Negative COVID-19 result, an alternative Dx has been determined per the bedside CHAO Willis RN 05/14/20 05/13/2020 05/13/2020 05/14/2020 7:[address] COVID: Suspected 05/23/2020 05/23/2020 05/23/2020 8:50 PM SUPERVISORY AIDE Respiratory Infection (ELEAZAR), contact + droplet Comment:Automatically added due to negative COVID-19 result. 05/23/2020 05/23/2020 06/06/2020 3:0 6 AM SUPERVISORY AIDE documented as of this encounter Care Teams Cloth Dyer Relationship Specialty Start Date End Date Smith Madrid MD PCP - General 08/18/16 [place] [address] [address] Consulting Physician Cardiology 05/14/20 [place] [address] [address] Consulting Physician Gastroenterology 09/29/21 [place] [address] [address] Consulting Physician Interventional Cardiology 09/30/21 Naomi George MD [address] [place] [address] Consulting Physician Neurology 11/01/21 Smith Madrid MD Referring Physician Internal Medicine 11/04/21 documented as of this encounter
--- OUTSIDE RECORDS SUMMARY | 2025-01-03 06:03 | XMS_ITS | Clinical Summary ---
Author Organization [facility] Address [address] [place] [address] Care Team Providers Care Warp Tier Name Role Phone Unavailable Primary Care Provider Unavailabl e Source Comments [facility],non-owned Affiliates and Associated Physician Practices is amultiple site organization consisting of ambulatory clinics and hospital sitesin [place], [place], [place] and [place]. This disclosure is being madepursuant to the Care Everywhere program and may not contain all information available regarding this patient. Last updated 18.[facility] [email or web address] Social History Tobacco Use Types Packs/Day Years Used Date Smoking Tobacco: Never Assessed Comments Unknown Sex and Gender Information Value Date Recorded Sex Assigned at Not on file Legal Sex Female 6:52 PM AVIONICS SAFETY INSPECTOR Gender Identity Not on file Sexual Orientation [...]
[2025-01-03 06:14] VITALS: BP 146/58; PULSE 55; RESP 16; TEMP 36.9; O2SAT 99
[2025-01-03] MEDS: ACETAMINOPHEN 500 MG TABLET 1000 MG PO (06:17)
[2025-01-03] MEDS: LACTATED RINGERS 1,000 ML 30 ML IV CONT ×2 (06:30→07:48)
--- NOTE | 2025-01-03 06:49 | PM.HPGS ---
History of Present Illness History of Present Illness Chief complaint: Digital Mucous Cyst Narrative: Patient seen and examined in pre-operative holding area. No interval change in medical history or symptoms. Patient recalls previous discussion of benefits and alternatives to procedure. Continues to desire to proceed with right middle finger mucous cyst excision. Reviewed procedure, post-op expectations and risks including but not limited to bleeding, infection, injury to tendon/nerve/vessel, decreased hand function, stiffness, RSD, no change or worsening of symptoms, recurrence. I discussed the possible use of assistants and their participation in the case. Patient stated understanding and signed the consent form wishing to proceed. Review of Systems Review of Systems: All systems reviewed & are unremarkable except as noted in HPI and below PMFSH Past Medical History Medical History (Updated 12/19/24 @ 11:11 by Jodee Pagan, CHAO) HX: benign breast biopsy Arthritis TINO (obstructive sleep apnea) Hypertension Hyperlipidemia Surgical History Surgical History History of bilateral tubal ligation History of cholecystectomy History of appendectomy History of Family History Family History (Updated 12/19/24 @ 11:10 by Jodee Pagan RN) Other Hypertension TINO (obstructive sleep apnea) Social History Social History Smoking status: Never smoker Second hand tobacco smoke exposure: No Alcohol intake: current Drinks per week: 0 Alcohol use details: 1 A MONTH Substance use: never Substance use type: does not use Living arrangements: alone Spiritual care concerns: No Meds Home Medications and Allergies Home Medications ?Medication ?Instructions ?Recorded ?Confirmed ?Type atorvastatin 10 mg tablet 10 mg PO DAILY 06/13/19 01/03/25 History conjugated estrogens 0.45 1 tablet PO DAILY 06/13/19 01/03/25 History mg-bazedoxifene 20 mg tablet (Duavee) dicyclomine 10 mg capsule 10 mg PO TID PRN Diarrhea 06/13/19 01/03/25 History fluoxetine 40 mg capsule 40 mg PO DAILY 06/13/19 01/03/25 History hydrochlorothiazide 12.5 mg capsule 12.5 mg PO DAILY 06/13/19 01/03/25 History lisinopril 10 mg tablet 10 mg PO DAILY 06/13/19 01/03/25 History metoprolol succinate 50 mg 50 mg PO DAILY 06/13/19 01/03/25 History tablet,extended release 24 hr montelukast 10 mg tablet 10 mg PO DAILY 06/13/19 01/03/25 History pregabalin 200 mg capsule (Lyrica) 200 mg PO BID 06/13/19 01/03/25 History ropinirole 2 mg tablet,extended 2 mg PO BID 06/13/19 01/03/25 History release 24 hr (Requip XL) amlodipine 10 mg tablet 10 mg PO DAILY 12/19/24 01/03/25 History aspirin 81 mg tablet,delayed 81 mg PO DAILY 12/19/24 01/03/25 History release (Adult Low Dose Aspirin) cholecalciferol (vitamin D3) 50 2,000 unit PO DAILY 12/19/24 01/03/25 History mcg (2,000 unit) capsule (Vitamin D3) ezetimibe 10 mg tablet 10 mg PO DAILY 12/19/24 01/03/25 History folic acid 1 mg tablet 1 mg PO DAILY 12/19/24 01/03/25 History krill ohk-ucsjm-5-dha-epa 150 1 cap PO DAILY 12/19/24 01/03/25 History mg-450 mg capsule,delayed release losartan 50 mg tablet 50 mg PO DAILY 12/19/24 01/03/25 History sertraline 100 mg tablet 100 mg PO Q24H 12/19/24 01/03/25 History spironolactone 25 mg tablet 25 mg PO DAILY 12/19/24 01/03/25 History Allergies Allergy/AdvReac Type Severity Reaction Status Date / Time metformin AdvReac Intermediate weakness Verified 01/03/25 06:12 naproxen AdvReac Unknown HEARTBURN, Verified 01/03/25 06:12 GI UPSET Vital Signs Vital Signs - 24 hr 01/03/25 06:14 Temperature 36.9 C Pulse Rate 55 L Respiratory Rate 16 Blood Pressure 146/58 H Pulse Oximetry 99 Oxygen Delivery Room Air Exam Narrative: unchanged Assessment and Plan Assessment and plan (1) Digital mucous cyst: Code(s): M67.449 - Ganglion, unspecified hand Status: Acute Assessment and Plan: cont as above
--- NOTE | 2025-01-03 06:50 | W.PM.PROC2 ---
Procedure Note - Detailed Date of Procedure 01/03/25 Pre-op Diagnosis Digital Mucous Cyst right middle finger Post-op Diagnosis Same Procedure Performed R MF mucous cyst and osteophyte excision and adjacent tissue transfer Surgeon Camilo Guadalupe MD Therapeutic Program Worker Chen Jha PA-C Anesthesia MAC Description of Procedure INFORMED CONSENT: The patient was seen and examined and marked in the pre-op area.? The patient signed the consent form. PROCEDURE IN DETAIL:The patient taken back to OR on the stretcher in supine position. Time out performed with anesthesia, surgeon and staff agreeing on patient's name site and surgery to be performed SCDs were placed on the lower extremities and inflated. A tourniquet was placed on {right} upper extremity and antibiotics given IV After anesthesia administered sedation I injected {3}cc 1%lido and 0.5% marcaine plain for digital block in the palm The?{right upper extremity}?was prepped and draped in sterile fashion the??{right upper extremity} was? exsanguinated with Esmarch bandage and tourniquet inflated to 250mmHg I proceeded with making an elliptical incision around the thinned affected tissue over the right middle finger mucous cyst through skin and dermis with a 15 blade scalpel. Incision was carried proximally and distally for exposure. I proceeded with circumferential dissection of the cyst down to the D IP joint where it was transected with bipolar cautery. I irrigated with normal saline. I identified a larger osteophyte coming off of the distal phalanx. After reflection of periosteum this was rongeured until smooth. I irrigated again with normal saline. I repaired the capsular defect with 5 0 Vicryl suture. Even with wide undermining I was unable to close the skin defect primarily given its proximity to the proximal nail fold so I extended my incision proximally to create a rotation advancement flap. After this was elevated with 15 blade scalpel it was rotated into place and secured with 4-0 chromic suture. A dressing of xeroform, 4x4, and tube gauze was applied after the tourniquet was let down noting the hand was warm and well perfused. The patient was then awaken from anesthesia and transferred to the recovery room in stable condition.? Complications - none EBL- 0cc Disposition - home in stable condition Chen Jha PA-C was essential for positioning, retraction, closure and dressing placement [facility] Billing Surgery - Charge Forward: Surgery Billing ([id number] same for chen syed )
--- NOTE | 2025-01-03 07:10 | P.PNAN_ITS ---
Anes - Initial Pre Proc Eval Procedure: Operation Date: 01/03/25 07:30 Proposed Procedures p Excision Mucous Cyst Right Middle Finger - Camilo Guadalupe MD Date/Time: 01/03/25 07:10 Surgeon: Camilo Guadalupe MD Pre Op Diagnosis: Digital Mucous Cyst Patient Data Age: 69 Gender: F Height: 1.68 m Weight: 101.6 kg Last Vital Signs Temp 98.4 F 01/03/25 06:14 Pulse 55 L 01/03/25 06:14 Resp 16 01/03/25 06:14 BP 146/58 H 01/03/25 06:14 Pulse Ox 99 01/03/25 06:14 O2 Del Method Room Air 01/03/25 06:14 Allergies Allergy/AdvReac Type Severity Reaction Status Date / Time metformin AdvReac Intermediate weakness Verified 01/03/25 06:12 naproxen AdvReac Unknown HEARTBURN, Verified 01/03/25 06:12 GI UPSET Home Medications ?Medication ?Instructions ?Recorded ?Confirmed ?Type atorvastatin 10 mg tablet 10 mg PO DAILY 06/13/19 01/03/25 History conjugated estrogens 0.45 1 tablet PO DAILY 06/13/19 01/03/25 History mg-bazedoxifene 20 mg tablet (Duavee) dicyclomine 10 mg capsule 10 mg PO TID PRN Diarrhea 06/13/19 01/03/25 History fluoxetine 40 mg capsule 40 mg PO DAILY 06/13/19 01/03/25 History hydrochlorothiazide 12.5 mg capsule 12.5 mg PO DAILY 06/13/19 01/03/25 History lisinopril 10 mg tablet 10 mg PO DAILY 06/13/19 01/03/25 History metoprolol succinate 50 mg 50 mg PO DAILY 06/13/19 01/03/25 History tablet,extended release 24 hr montelukast 10 mg tablet 10 mg PO DAILY 06/13/19 01/03/25 History pregabalin 200 mg capsule (Lyrica) 200 mg PO BID 06/13/19 01/03/25 History ropinirole 2 mg tablet,extended 2 mg PO BID 06/13/19 01/03/25 History release 24 hr (Requip XL) amlodipine 10 mg tablet 10 mg PO DAILY 12/19/24 01/03/25 History aspirin 81 mg tablet,delayed 81 mg PO DAILY 12/19/24 01/03/25 History release (Adult Low Dose Aspirin) cholecalciferol (vitamin D3) 50 2,000 unit PO DAILY 12/19/24 01/03/25 History mcg (2,000 unit) capsule (Vitamin D3) ezetimibe 10 mg tablet 10 mg PO DAILY 12/19/24 01/03/25 History folic acid 1 mg tablet 1 mg PO DAILY 12/19/24 01/03/25 History krill wan-hdngh-2-dha-epa 150 1 cap PO DAILY 12/19/24 01/03/25 History mg-450 mg capsule,delayed release losartan 50 mg tablet 50 mg PO DAILY 12/19/24 01/03/25 History sertraline 100 mg tablet 100 mg PO Q24H 12/19/24 01/03/25 History spironolactone 25 mg tablet 25 mg PO DAILY 12/19/24 01/03/25 History Patient hx anesthesia problems: none Family hx anesthesia problems: none Results Review: All pre-operative results and documents have been reviewed as part of the pre- operative evaluation. [facility] Past Medical History Medical History (Updated 12/19/24 @ 11:11 by Jodee Pagan RN) HX: benign breast biopsy Arthritis TINO (obstructive sleep apnea) Hypertension Hyperlipidemia Surgical History Surgical History History of bilateral tubal ligation History of cholecystectomy History of appendectomy History of Family History Family History (Updated 12/19/24 @ 11:10 by Jodee Pagan RN) Other Hypertension TINO (obstructive sleep apnea) Social History Social History Smoking status: Never smoker Second hand tobacco smoke exposure: No Alcohol intake: current Drinks per week: 0 Alcohol use details: 1 A MONTH Substance use: never Substance use type: does not use Living arrangements: alone Spiritual care concerns: No Anes - Eval Final PreProcedure Day of Procedure 01/03/25 07:10 Heart: regular rate and rhythm Lungs: clear to auscultation Airway: Mallampati scale class IV Neurological: alert and oriented Last oral intake: >/= 8 hours ASA classification: III Anesthetic plan: proceed Anesthesia type and monitoring: monitored anesthesia care Results Review: All pre-operative results and documents have been reviewed as part of the pre- operative evaluation. Informed Consent: The patient's anesthetic plan and its attendant risks and benefits were discussed with the patient/family/POA. Questions were solicited and answers provided to the satisfaction of the patient/family/POA.
[2025-01-03] MEDS: ceFAZolin SODIUM 2 GM/20 ML SW SYRINGE IV PUSH (07:33)
--- NOTE | 2025-01-03 07:39 | WPDANESPN ---
Anes - Prog Note Post-Op Date/Time: 01/03/25 07:39 Vital Signs: Last Vital Signs Temp 98.4 F 01/03/25 06:14 Pulse 55 L 01/03/25 06:14 Resp 16 01/03/25 06:14 BP 146/58 H 01/03/25 06:14 Pulse Ox 99 01/03/25 06:14 O2 Del Method Room Air 01/03/25 06:14 Pain Score (VAS): no Patient Feedback: Patient satisfied with anesthetic care.
[2025-01-03] MEDS: LIDOCAINE 1% LOCAL INJ 20 ML VIAL 2.5 ML INFILTRATE (07:45)
[2025-01-03] MEDS: BUPivacaine HCL 0.5% 10 ML AMP INFILTRATE (07:47)
[2025-01-03 07:49] VITALS: BP 84/37; PULSE 42; RESP 16; O2SAT 98
[2025-01-03 08:00] VITALS: BP 107/51; PULSE 51; RESP 16; O2SAT 94
[2025-01-03 08:10] VITALS: BP 114/49; PULSE 55; RESP 16; O2SAT 95
[2025-01-03 08:20] VITALS: BP 118/47; PULSE 48; RESP 18; O2SAT 99
[2025-01-03 08:30] VITALS: BP 113/45; PULSE 48; RESP 18; O2SAT 98
--- NOTE | 2025-01-03 08:43 | SUR.PHASEII ---
d/c delayed waiting on ride from son
== END 2025-01-03 08:55 | disposition home or self-care (01) ==
PROVIDERS: PCP Internal Medicine; Visit Provider Plastic Surgery
PROC: (CPT 26210; principal; 2025-01-03 07:30)
DX: M67.441 Ganglion, right hand (principal); M25.741 Osteophyte, right hand
CPT/HCPCS: 26210; 14040

== ENCOUNTER 2025-01-03 08:57 | Outpatient (NON) | payer MEDICARE, OTHER, SELFPAY ==
--- NOTE | 2025-01-03 | S_PTH ---
PATIENT: Jenn Salazar LOC: ANAB #:[id number] AGE/SX: 69/F ROOM: RE01/03/[address]: Camilo Guadalupe MD : 1955 BED: DIS: 01/03/2025 SPEC #: [id number] RECD: 01/04/25 09:50 STATUS: JUNAID REClara #: [id number] DELILAH: 01/03/25 00:[address]: Camilo Guadalupe DEPT: [facility] RECD BY: Evelyn Santiago ENTERED: 01/04/25 09:51 SP TYPE: Surgical OTHR DR: Smith MadridMD Tissues: A - Cyst B - Cyst Procedures: Hematoxylin and Eosin Stain Gross and Microscopic Level 4
--- OUTSIDE RECORDS SUMMARY | 2025-01-04 09:03 | XMS_ITS | Clinical Summary ---
Author Organization [facility] Address [address] [place] [address] Care Team Providers Care Mine Car Dispatcher Name Role Phone Teddy Madrid MD Primary Care Provider [phone] Social History Tobacco Use Types Packs/Day Years [...] TOMMY ELIDA DIGI Routine 04/04/2024 9:30 AM WELDING OPERATOR Screening mammogram, encounter for BONE DENSITY/DEXA Routine 11/19/2019 8:5 0 AM CDT Asymptomatic menopausal state from Last 3 Months or Most Recently Relevant to Health Maintenance Results * MG SCREENING W TOMMY ELIDA DIGI (04/04/2024 9:30 AM WELDING OPERATOR) Anatomical Region Laterality Modality Breast Bilateral Mammography 04/04/2024 12:1 1 PM WELDING OPERATOR Impressions 04/04/2024 12:14 PM WELDING OPERATOR ===== IMPRESSION: ===== 1. Stable mammographic appearance with no new findings to suggest malignancy in either breast. Assessment: ACR BI-RADS 2 - BENIGN FINDING(S) Recommendation: 1:Routine Screening Bilateral Comments: Ordered By: TEDDY MADRID Interpreted By: Edison Pelayo, 04/04/2024 12:11 PM Narrative 04/04/2024 12:14 PM WELDING OPERATOR [facility] [place] [address] EXAMINATION: Digital bilateral screening mammogram with 3-D [...] Recently Relevant to Health Maintenance Insurance MEDICARE [facility] Care Teams Mine Car Dispatcher Relationship Specialty Start Date End Date Teddy Madrid MD [address] [address] PCP - General 10/13/15
--- OUTSIDE RECORDS SUMMARY | 2025-01-04 09:03 | XMS_ITS | Encounter Summary ---
Author Organization [facility] Address [address] [place] [address] Care Team Providers Care National Account Representative Name Role Phone Unavailable Primary Care Provider Unavailabl e Encounter Details Date Type Department Care Team (Late st Contact Info) Description 08/12/2020 Lab Requisition [facility] [address] [place] [address] Felix Sidhu MD [address] [place] [address] Social History Tobacco Use Types Packs/Day Years Used Date Smoking Tobacco: Never Assessed Comments Unknown Sex and Gender Information Value Date Recorded Sex Assigned at Not on file Legal Sex 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 Gender Identity Not on file Sexual Orientation Not on file documented as of this encounter Plan of Treatment Not on file documented as of this encounter Procedures Procedure Name Priority Date/Time Associated Diagnosis Comments DERMATOPATHOLOGY Routine 08/11/2020 12:0 0 AM CDT documented in this encounter Results * DERMATOPATHOLOGY (08/11/2020 12:00 AM CDT) Case Report Dermatopathology Report Case: [id number] Authorizing Provider: Felix Sidhu MD Collected: 08/11/2020 12:00 AM Ordering Location: [facility] Received: 08/12/2020 12:28 PM [...] specimen consists of a shave biopsy measuring 20x12g3ql. Jar 0. 12:53 PM CDT DERMATOPATHOLOGY LABORATORY [...] determined by the Dermatopathology Laboratory at [facility], directed by Dr. Clau Titus. These tests need not be, and therefore are not, approved by the [place] Food and Drug Administration. The tests are used for clinical purposes. Billing Codes Specimen Charges Stain Charges 40702 1 12:53 PM CDT DERMATOPATHOLOGY LABORATORY Embedded Images 12:53 PM CDT DERMATOPATHOLOGY LABORATORY Pathology/Cytolog y TISSUE SPECIMEN FROM SKIN / Unknown 08/11/2020 08/12/2020 12:28 PM CDT Felix Sidhu MD LAB - PATHOLOGY/CYTOLOGY ORD ERABLES Final Result DERMATOPATHOLOGY LABORATORY [facility] - Department of Dermatology [address] [place] [address], [facility] [phone] documented in this encounter Visit Diagnoses Not on filedocumented in this encounter
--- OUTSIDE RECORDS SUMMARY | 2025-01-04 09:03 | XMS_ITS | Encounter Summary ---
Author Organization [facility] Address [address] [facility] [place] [address] Care Team Providers Care Pediatric Assistant Name Role Phone Unavailable Primary Care Provider Unavailabl e Encounter Details Date Type Department Care Team (Late st Contact Info) Description 09/05/2020 Lab Requisition [facility] D[facility] Lab [address] [place] [address] Felix Sidhu MD [address] [place] [address] Social History Tobacco Use Types Packs/Day Years Used Date Smoking Tobacco: Never Assessed Comments Unknown Sex and Gender Information Value Date Recorded Sex Assigned at Not on file Legal 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 Gender Identity Not on file Sexual Orientation Not on file documented as of this encounter Plan of Treatment Not on file documented as of this encounter Procedures Procedure Name Priority Date/Time Associated Diagnosis Comments DERMATOPATHOLOGY Routine 09/03/2020 12:0 0 AM CDT documented in this encounter Results * DERMATOPATHOLOGY (09/03/2020 12:00 AM CDT) Case Report Dermatopathology Report Case: [id number] Authorizing Provider: Felix Sidhu MD Collected: 09/03/2020 12:00 AM Ordering Location: [facility] Lab Received: 09/05/2020 08:32 AM Pathologist: Gauri Titus MD Specimen: Skin, midline upper back 1 1:45 PM CDT DERMATOPATHOLOGY LABORATORY Final Diagnosis Specimen A. SKIN, midline upper back: HEALING SKIN CHANGES (L90.5) PRESENT AT MARGIN 1 1:45 PM CDT DERMATOPATHOLOGY LABORATORY at 1345 CDT Clinical History Bx proven BCC, superficial multifocal. Previous Bx: [id number]. 1 1:45 PM CDT DERMATOPATHOLOGY LABORATORY Gross Description Specimen A: Received is one formalin filled container labeled with the patient's name and designated midline upper back. The specimen consists of a curettage and desiccation biopsy measuring [id number], the margin is inked green. Jar 0. [...] characteristic determined by the Dermatopathology Laboratory at [facility], directed by Dr. Clau Titus. These tests need not be, and therefore are not, approved by the [place] Food and Drug Administration. The tests are used for clinical purposes. Billing Codes Specimen Charges Stain Charges 61361 1 1 1:45 PM CDT DERMATOPATHOLOGY LABORATORY Embedded Images 1 1:45 PM CDT DERMATOPATHOLOGY LABORATORY Pathology/Cytolog y TISSUE SPECIMEN FROM SKIN / Unknown 09/03/2020 09/05/2020 8:32 AM CDT Felix Sidhu MD LAB - PATHOLOGY/CYTOLOGY ORD ERABLES Final Result DERMATOPATHOLOGY LABORATORY [facility] - Department of Dermatology [address] [phone] documented in this encounter Visit Diagnoses Not on filedocumented in this encounter
--- OUTSIDE RECORDS SUMMARY | 2025-01-04 09:03 | XMS_ITS | Clinical Summary ---
Author Organization [facility] Address [address] [place] [address] Care Team Providers Care Regional Driver Name Role Phone Smith Madrid MD Primary Care Provider [phone] Olga Macias MD Unavailable Davy Pena MD Unavailable Ghulam Crews MD Unavailable [phone] Naomi George MD Unavailable Smith Madrid MD Unavailable [phone] Allergies Active Allergy Reactions Criticality Noted [...] 06/24/2022 Assessment & Plan (06/24/2022 12:00 PM EXTRUSION UTILITY WORKER): Heat PRN MDP and tizanidine PRN (use, s/e reviewed) May do activity as tolerated, stop if pain returns BMI 34.0-34.9,adult 11/04/2021 History of CHF (congestive heart failure) 2021 Gallstone pancreatitis 10/13/2021 Overview (10/13/2021): Added automatically from request for surgery [id number] Jaundice 09/22/2021 Overview (09/28/2021): Added automatically from request for surgery [id number] Bilateral carpal tunnel syndrome 08/03/2021 Family history [...] reduction. Assessment & Plan (06/16/2020 9:14 AM EXTRUSION UTILITY WORKER): bp at target. Resolved Problems Problem Noted Date Diagnosed Date Resolved Date Chest pain 09/22/2021 06/24/2022 Acute maxillary sinusitis 06/16/2020 Assessment & Plan (06/16/2020 9:15 AM EXTRUSION UTILITY WORKER): Will give cefuroxime. Encounters Date Type Department Care Team Description 12/25/2024 Orders Only [facility] [address] [place] [address] [place] [phone] Smith Madrid MD 12/13/2024 4:00 PM CDT Office Visit [facility] Neuro Muscle [address] [facility] 6[address] [place] [address] [place] [address] Naomi George MD Hereditary and idiopathic neuropathy, unspecified (Primary Dx) 11/30/2024 Orders Only [facility] [facility] [address] [place] [address] Maite Hawthorne RMA Family history of hemochromatosis (Primary Dx) 10/29/2024 Results Follow-Up [facility] [address] [place] [phone] Smith Madrid MD SCAN - RADIOLOGY/IMAGING 10/29/2024 Orders Only [facility] [address] [address] Smith Madrid MD from Last [...] Name Status Comments Brother 1 Ivan Other [place] age 50's Brother 2 Srini Alive [place] age 50's Brother 3 Ang Daughter Diane Father Gene (Age 62) [place] age 40s , TIA's age 50's Father's Brother unknown Father's Sister unknown Maternal Grandfather Vitor Mother Ileana Gomez (Age 82) Sister 1 Patricia [place] age 50 Sister 2 Annamaria Son Smith Social History Tobacco Use Types Packs/Day Years Used Date Smoking Tobacco: Never Smokeless Tobacco: Never Alcohol Use Standard Drinks/Week Comments Yes 1 (1 standard drink = 0.6 oz pur e alcohol) previously; now rarely drinks [facility] Utilities Answer Date Recorded In the past [...] often do you attend chur ch or gnosticism services? More than 4 times per year 06/07/2023 Do you belong to any clubs o r organizations such as mandaen groups, unions, fraternal or athletic groups, or [...] place to sleep or slept in a care home (including now)? No 06/07/2023 Personal Safety Answer Date Recorded Have you ever been in or are you currently in a harmful physical or emotional relationship or is someone making you feel afraid or unsafe? Denies 06/07/2023 Comments No Sex and Gender Information Value Date Recorded Sex Assigned at Not on file Legal Sex Female 2:02 AM EXTRUSION UTILITY WORKER Gender Identity Female 03/06/2020 2:31 PM CDT Sexual Orientation Straight 03/06/2020 2: 31 PM CDT Obstetrics History Last Filed Vital Signs Vital Sign Reading Time Taken Comments Blood Pressure 143/66 12/13/2024 3:43 PM CDT Pulse 65 10/01/2024 9:26 AM CDT Temperature 36.6 C (97.8 F) 06/08/2023 7:00 AM EXTRUSION UTILITY WORKER Respiratory Rate 18 06/08/2023 7:00 AM EXTRUSION UTILITY WORKER Oxygen Saturation 97% 10/19/2023 8:57 AM CDT [...] 11/30/2022, 01/2023 Medical Devices Implanted Type Area Special Machine Operator Device Identifier Shelf Expiration Date Model / Serial / Lot [employer] Percutaneous Transcatheter Amplatzer Amulet 25mm [id number] - [id number] Implanted:Qty: 1 on 06/07/2023 by Ghulam Crews MD at [facility] Left Atrial Appendage Occluder Left: Atrial Appendage [employer] 05/22/2027 [id number] / / [id number] [employer] Advanix Naviflex 10fr 7cm Preload Radiopaque Rapid Exchange [id number] - [id number] Implanted:Qty: 1 on 09/28/2021 by Davy Pena MD at [facility] Famely [employer] 07/20/2023 [id number] / / [id number] [employer] Angio-Seal Vip 6fr Closere Device [id number] - [id number] Implanted:Qty: 1 on 08/12/2022 at [facility] Soldsie Milton 02/19/2023 [id number] / / [id number] [employer] Device Clsr Perclose Prostyle Sut-Mediatd Closure-Repair Sys [id number] - [id number] Implanted:Qty: 1 on 06/07/2023 by Ghulam Crews MD at [facility] N/A: Femoral Vein [employer] 03/22/2025 [id number] / / [id number] Procedures Procedure Name Priority Date/Time Associated Diagnosis [...] POCT LIPID PANEL Routine 04/03/2024 9:46 AM EXTRUSION UTILITY WORKER Mixed hyperlipidemia ALBUMIN CREATININE RATIO, URINE Routine [...] LAB BLOOD ORDERABLES Final Re sult [facility] Department [place] [address] * (ABNORMAL) POCT hemoglobin A1c (10/01/2024 9:38 AM CDT) Hemoglobin A1C, POC 5.8(A) 4.0 - 5.6 % Capillary blood 10/01/2024 9 :38 AM CDT us Smith Madrid MD POINT OF CARE TEST ORDERABLES Final Result * POCT lipid panel (04/03/2024 9:46 AM EXTRUSION UTILITY WORKER) Cholesterol, POC 134 mg/dL HDL, POC 33 mg/dL Triglycerides, POC 115 mg/dL LDL Cholesterol POC 78 mg/dL Chol/HDL Ratio, POC 4.1 Non-HDL Cholesterol, POC 101 mg/dL Cholesterol Total, POC 134 mg/dL Capillary blood 04/03/2024 9 :46 AM EXTRUSION UTILITY WORKER Smith Madrid MD POINT OF CARE TEST [...] 01/28/2023 10:11 AM CDT Performed at: - [facility] [address] Director Process Engineering: Deyvi Solis PhD, Phone: [phone] Smith Madrid MD LAB URINE ORDERABLES Final Re sult Performing Organization Address City/State/[facility] Co de Phone Number [facility] - 01 from Last 3 Months or Most Recently Relevant to Health Maintenance Insurance MEDICARE [employer] [facility] [employer] MEDICARE Advance Directives For more information, please contact: [phone] Documents on File Type Date Recorded 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 Expl anation ADVANCE DIRECTIVE 08/27/2021 7:12 AM Power of Clinical Support Associate-Medical ADVANCE DIRECTIVE 03/08/2018 12:00 AM [facility] ER OF TILE INSPECTOR FINANCIAL/MEDICAL * Full Code (Latest Code Status [...] PM 05/23/2020 11:16 PM Care Teams Regional Driver Relationship Specialty Start Date End Date Smith Madrid MD PCP - General 08/18/16 [place] [address] [address] Consulting Physician Cardiology 05/14/20 [place] [address] [address] Consulting Physician Gastroenterology 09/29/21 [place] [address] [address] Consulting Physician Interventional Cardiology 09/30/21 Naomi George MD [address] [place] [address] Consulting Physician Neurology 11/01/21 Smith Madrid MD Referring Physician Internal Medicine 11/04/21
--- OUTSIDE RECORDS SUMMARY | 2025-01-04 09:03 | XMS_ITS | Encounter Summary ---
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 05/23/2020 05/23/2020 06/06/2020 3:0 6 AM SENIOR SALES ASSOCIATE documented as of this encounter Care Teams Promotions Firm Accounts Manager Relationship Specialty Start Date End Date Smith Madrid MD PCP - General 08/18/16 [place] [address] [address] Consulting Physician Cardiology 05/14/20 [place] [address] [address] Consulting Physician Gastroenterology 09/29/21 [place] [address] [address] Consulting Physician Interventional Cardiology 09/30/21 Naomi George MD [address] [place] [address] Consulting Physician Neurology 11/01/21 Smith Madrid MD Referring Physician Internal Medicine 11/04/21 documented as of this encounter
--- OUTSIDE RECORDS SUMMARY | 2025-01-04 09:03 | XMS_ITS | Clinical Summary ---
Author Organization [facility] Address [address] [place] [address] Care Team Providers Care Masonry Supervisor Name Role Phone Unavailable Primary Care Provider Unavailabl e Source Comments [facility],non-owned Affiliates and Associated Physician Practices is amultiple site organization consisting of ambulatory clinics and hospital sitesin [place], [place], [place] and [place]. This disclosure is being madepursuant to the Care Everywhere program and may not contain all information available regarding this patient. 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
--- OUTSIDE RECORDS SUMMARY | 2025-01-04 09:03 | XMS_ITS | Clinical Summary ---
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
== END 2025-01-03 08:58 | disposition home or self-care (01) ==
PROVIDERS: PCP Internal Medicine; Visit Provider Plastic Surgery
DX: L57.0 Actinic keratosis (principal); M25.741 Osteophyte, right hand; M67.40 Ganglion, unspecified site
CPT/HCPCS: 88305